=== PATIENT | male | born 1945 | race Caucasian/White ===

== ENCOUNTER 2016-11-23 01:30 | Emergency (ER) | payer MEDICARE ==
[~2016-11-23] VITALS: Ht 180.3 cm; Wt 104.5 kg
[~2016-11-23 01:30] MED LIST: ALDACTONE 100M100 MG PO; ALDACTONE50 MG PO; AMOXICILLIN 50500 MG PO; ATARAX50 MG PO; B-1100 MG PO; BIAXIN 500MG T500 MG PO; CELEXA 20MG20 MG/TAB PO; CORGARD20 MG PO; LASIX 40MG TABL40 MG PO; LEXAPRO 10MG10 MG PO; LIBRIUM 5MG5 MG/CAP PO; MULTIPLE VITAMI1 CAP PO; NO HOME MEDICATIONS; PRILOSEC 20MG20 MG PO; PROTONIX 40MG T40 MG PO; TYLENOL 500MG500 MG PO
[2016-11-23 01:36] VITALS: TEMP 96.8
[2016-11-23 01:51] LABS: BASO # 0.1 (0.0-0.2); BASO % 0.8 % (0.0-2.0); EOS % 0.5 % (0-4.0); GRAN # 4.4 (1.4-6.5); GRAN % 66.5 % (42.2-75.2); HEMATOCRIT 41.4 % (42.0-52.0); HEMOGLOBIN 14.6 g/dl (13.5-18.0); LYMPH # 1.4 (1.2-3.4); LYMPH % 20.7 % (20.0-51.0); MEAN CELL VOLUME 97 fl (80.0-100.0); MEAN CORPUSCULAR HEMOGLOBIN 34 pg (27.0-31.0); MEAN CORPUSCULAR HGB CONC 35 g/dl (33.0-37.0); MONO # 0.7 (0.1-0.6); MONO % 11.2 % (1.7-9.3); PLATELET COUNT 93 K/mm3 (130-400); RED BLOOD COUNT 4.25 M/mm3 (4.20-5.60); WHITE BLOOD COUNT 6.6 K/mm3 (4.8-10.8)
[2016-11-23 01:56] LABS: INR 1.1 (0.8-3.0); PROTHROMBIN TIME 11.8 SECONDS (9.7-12.8)
[2016-11-23 01:58] LABS: ADJUSTED CALCIUM 9.2 mg/dL (8.4-10.2); ALANINE AMINOTRANSFERASE 89 U/L (21-72); ALBUMIN 4.5 gm/dL (3.5-5.0); ALKALINE PHOSPHATASE 116 U/L (50-136); ANION GAP 16 mmol/L (7-16); BLOOD UREA NITROGEN 5 mg/dL (9-20); CALCIUM 9.6 mg/dL (8.4-10.2); CARBON DIOXIDE 16 mmol/L (22-30); CHLORIDE 104 mmol/L (98-107); CREATININE, serum 0.72 mg/dL (0.66-1.25); GLUCOSE 108 mg/dL (74-106); LIPASE 96 U/L (23-300); SODIUM 136 mmol/L (137-145); TOTAL PROTEIN 8.3 gm/dL (6.4-8.2)
[2016-11-23 02:09] LABS: TROPONIN-I < 0.012 ng/mL (0.000-0.034)
[2016-11-23 02:22] LABS: PH 6 (5-8); SQUAMOUS EPITHELIAL None Seen /hpf; URINE APPEARANCE Clear; URINE BACTERIA None Seen /hpf; URINE BILIRUBIN Negative (NEGATIVE); URINE BLOOD Negative (NEGATIVE); URINE COLOR Yellow; URINE GLUCOSE Negative (NEGATIVE); URINE KETONE Trace (NEGATIVE); URINE RBC 0-2 /hpf; URINE UROBILINOGEN Negative (NEGATIVE); URINE WBC 0-2 /hpf
[2016-11-23 02:34] LABS: AMYLASE 71 U/L (30-110)
[2016-11-23 03:32] VITALS: BP 174/88; PULSE 80
[2016-11-23] MEDS ORDERED: PEPCID 20MG TAB20 MG PO (03:41)
== END 2016-11-23 03:45 | disposition home or self-care (01) ==
LOC: COL.ER 01:30
PROVIDERS: Emergency Medicine
DX: K29.70 Gastritis, unspecified, without bleeding (principal); K76.6 Portal hypertension; K76.0 Fatty (change of) liver, not elsewhere classified; K21.9 Gastro-esophageal reflux disease without esophagitis; B19.9 Unspecified viral hepatitis without hepatic coma; Z87.11 Personal history of peptic ulcer disease; Z98.890 Other specified postprocedural states; Z87.19 Personal history of other diseases of the digestive system
CPT/HCPCS: G0463; J2550; J2765; J3010; J7030; Q9967

== ENCOUNTER 2020-03-24 10:38 | Inpatient (IN) | payer MEDICARE ==
[~2020-03-24] VITALS: Ht 180.3 cm; Wt 89.6 kg
[~2020-03-24 10:38] MED LIST changes: +PEPCID 20MG TAB20 MG PO
[2020-03-24 11:29] LABS: BASO # 0.1 (0.0-0.2); BASO % 0.6 % (0.0-2.0); GRAN # 6.4 (1.4-6.5); GRAN % 81.9 % (42.2-75.2); HEMATOCRIT 31.5 % (42.0-52.0); LYMPH # 0.5 (1.2-3.4); LYMPH % 6.3 % (20.0-51.0); MEAN CELL VOLUME 89 fl (80.0-100.0); MEAN CORPUSCULAR HEMOGLOBIN 28 pg (27.0-31.0); MEAN CORPUSCULAR HGB CONC 32 g/dl (33.0-37.0); MEAN PLATELET VOLUME 10.5 fl (7.4-10.4); MONO # 0.8 (0.1-0.6); MONO % 10.7 % (1.7-9.3); PLATELET COUNT 90 K/mm3 (130-400); RED BLOOD COUNT 3.55 M/mm3 (4.20-5.60); REDCELL DISTRIBUTION WIDTH-CV 16.9 % (11.5-14.5)
[2020-03-24 12:04] LABS: ALBUMIN 4.7 gm/dL (3.5-5.0); BILIRUBIN,TOTAL 0.7 mg/dL (0.0-1.0); CALCIUM 9.1 mg/dL (8.4-10.2); CREATININE, serum 0.82 (0.66-1.25); POTASSIUM 3.9 mmol/L (3.4-5.0)
[2020-03-24 14:37] LABS: COLLECTION METHOD CLEAN CATCH
[2020-03-24 15:08] LABS: MUCOUS Present /lpf; PH 6 (5-8); SQUAMOUS EPITHELIAL 0-2 /hpf; URINE APPEARANCE Clear; URINE BACTERIA None Seen /hpf; URINE BILIRUBIN Negative (NEGATIVE); URINE BLOOD 1+ (NEGATIVE); URINE COLOR Yellow; URINE GLUCOSE Negative (NEGATIVE); URINE KETONE 1+ (NEGATIVE); URINE LEUKOCYTE ESTERASE Negative (NEGATIVE); URINE NITRATE Negative (NEGATIVE); URINE PROTEIN(semi-quant) 1+ (NEGATIVE); URINE RBC 0-2 /hpf; URINE UROBILINOGEN Negative (NEGATIVE); URINE WBC 0-2 /hpf
[2020-03-24 18:00] VITALS: BP 159/72; PULSE 85; TEMP 98.3
--- NOTE | 2020-03-24 18:14 | NUR ---
PATIENT ARRIVED TO ROOM 348 VIA CART FROM ED. PATIENT SETTELED INTO ROOM. CALL LIGHT WITHIN REACH.
[2020-03-24 18:39] VITALS: BP 159/72; PULSE 85; TEMP 98.3
--- NOTE | 2020-03-24 18:49 | NUR ---
PATIENT DETOX PROTOCL ASSESSMENT COMPLETED. PATIENT MEDICATED PER PROTOCOL. BEDSIDE SHIFT REPORT GIVEN TO ANTHONY CARLOS.
[2020-03-24 19:15] LABS: HEMATOCRIT 31.5 % (42.0-52.0); HEMOGLOBIN 9.9 g/dl (13.5-18.0)
[2020-03-24 20:00] VITALS: BP 113/68; PULSE 79; TEMP 98.4
--- NOTE | 2020-03-24 20:00 | NUR ---
Pt. laying in bed at this time. Pt. is A&Ox3, assessment complete. IVs to rt. and lt. hands patent, fluids running per orders. Pt. denies pain or other needs at this time. Call light within reach.
[2020-03-24 22:08] VITALS: BP 147/66; PULSE 87; TEMP 98.1
[2020-03-24 23:56] LABS: INR 1.1 (0.8-3.0)
[2020-03-24 23:59] LABS: PARTIAL THROMBOPLASTIN TIME 27.1 SECONDS (26.0-37.0)
[2020-03-25] VITALS (13 sets, daily range): BP systolic 123–164; BP diastolic 57–107; PULSE 65–98; TEMP 97.2–99.1
[2020-03-25 05:57] LABS: BASO % 0.4 % (0.0-2.0); EOS % 0.2 % (0-4.0); GRAN # 3.2 (1.4-6.5); GRAN % 67.6 % (42.2-75.2); LYMPH # 0.9 (1.2-3.4); LYMPH % 19.3 % (20.0-51.0); MEAN CELL VOLUME 91 fl (80.0-100.0); MEAN CORPUSCULAR HGB CONC 31 g/dl (33.0-37.0); MEAN PLATELET VOLUME 10.2 fl (7.4-10.4); MONO # 0.6 (0.1-0.6); MONO % 12.1 % (1.7-9.3); PLATELET COUNT 66 K/mm3 (130-400); RED BLOOD COUNT 2.98 M/mm3 (4.20-5.60)
[2020-03-25 06:05] LABS: HEMATOCRIT 27.1 % (42.0-52.0); HEMOGLOBIN 8.5 g/dl (13.5-18.0); MEAN CORPUSCULAR HEMOGLOBIN 29 pg (27.0-31.0)
[2020-03-25 06:07] LABS: CALCIUM 8.4 mg/dL (8.4-10.2); CREATININE, serum 0.85 (0.66-1.25)
--- NOTE | 2020-03-25 13:49 | NUR ---
Patient alert and oriented, answers questions appropriately. See assessment. Abdomen soft, non tender, non distended. Bowel sounds active x4 quads. +Flatus. Nausea. C/o pain 2/10 diffuse abdominal pain. No other c/o at this time.
--- NOTE | 2020-03-25 13:51 | NUR ---
Plan to return home with spouse Jose . SW met with patient about dc plan. Patien reports that his PCP is Dr. Shiv Solorio and surery is postpone and is not sure of the additional needs that he may have. Patient reports that he does not have any dme. Patient shares that he use [facility] on [address], denies having a POA. No opposed to [facility], if needed. Will continue to follow.
[2020-03-25 20:29] LABS: HEMATOCRIT 29.8 % (42.0-52.0); HEMOGLOBIN 9.1 g/dl (13.5-18.0)
[2020-03-26] VITALS (214 sets, daily range): BP systolic 110–175; BP diastolic 63–97; PULSE 66–108; TEMP 96.9–99.4; O2SAT 69–100
[2020-03-26 06:31] LABS: MEAN CELL VOLUME 91 fl (80.0-100.0); MEAN CORPUSCULAR HGB CONC 32 g/dl (33.0-37.0); PLATELET COUNT 75 K/mm3 (130-400); RED BLOOD COUNT 3.16 M/mm3 (4.20-5.60); REDCELL DISTRIBUTION WIDTH-CV 16.6 % (11.5-14.5)
[2020-03-26 06:33] LABS: HEMATOCRIT 28.6 % (42.0-52.0); MEAN CORPUSCULAR HEMOGLOBIN 28 pg (27.0-31.0)
[2020-03-26 06:41] LABS: CALCIUM 8.5 mg/dL (8.4-10.2); CREATININE, serum 0.84 (0.66-1.25); MAGNESIUM 1.7 mg/dL (1.6-2.3)
[2020-03-26 06:44] LABS: ANISOCYTOSIS 1+; BAND 4 % (0-10); EOSINOPHIL 1 % (0-4); LYMPHOCYTE 9 % (20.0-51.0); NEUTROPHILS 78 % (42.0-75.2); PLATELET ESTIMATE DECREASED (NORMAL)
--- NOTE | 2020-03-26 09:45 | NUR ---
Patient alert, confused to place. Difficult to redirect. See assessment. Abdomen soft, non tender, non distended. +Flatus. No bowel movement today. Repeatedly inquires when he will have EGD. No other c/o at this time.
--- NOTE | 2020-03-26 10:07 | NUR ---
To EGD at this time.
--- NOTE | 2020-03-26 11:52 | NUR ---
Patient returned from EGD at 1105, has had increased agitation since returning. States he did not consent for the EGD and it was done against his will. Requests to leave hospital. Refuses to leave blood pressure cuff on.
--- NOTE | 2020-03-26 12:23 | NUR ---
Patient agitated, upon entering room, patient had SCD motor and was attempting to "break the window so I can leave". Redirected back to bed.
[2020-03-26 14:10] LABS: FOLATE (FOLIC ACID) 16.8 ng/mL (7.0-31.4)
--- NOTE | 2020-03-26 15:15 | NUR ---
Patient continues with agitation. Unable to redirect. Constantly hollering out, throwing items off table/bed.
--- NOTE | 2020-03-26 16:00 | NUR ---
Patient continues with agitation, inability to redirect. Repeatedly scores 18-19 on CIWA. Ativan 2mg given approx q2 hours throughout shift based on CIWA scores. Amber, Hospitalist BRIAN notified x2 of patients increased agitation. Has required assist at bedside of 1-2 staff members throughout the day. Unsteady with attempts at ambulation and attempts to find hospital exit when walking in the halls. Becoming increasingly combative.
--- NOTE | 2020-03-26 17:00 | NUR ---
Precedex drip started by supervisor hospitality house and another RN.
--- NOTE | 2020-03-26 17:20 | NUR ---
Called Jonelle CRUZ from surgical floor for report. Pt in ICU room 5 with oracle data warehouse developer. Pt very agitated and restless. Pt attempting to pull out Iv's, climbing out of bed, and pull things off. Pt also attempting to hit staff members. Will titrate precedex as able.
--- NOTE | 2020-03-26 18:10 | NUR ---
PT CONTINUES TO BE VERY AGITATED AND RESTLESS. UNABLE TO PLACE TELE OR COMPLETE VITALS. PT UP AND OUT OF BED MULTIPLE TIMES.
--- NOTE | 2020-03-26 18:14 | NUR ---
FINALLY ABLE TO PLACE TELE AND SHOWING SR ON MONITOR. BP FINALLY TAKEN. WILL ATTEMPT TO KEEP PT CALM AND IN BED.
[2020-03-26 18:34] LABS: HEMATOCRIT 28.7 % (42.0-52.0); HEMOGLOBIN 8.9 g/dl (13.5-18.0)
--- NOTE | 2020-03-26 19:00 | NUR ---
BEDSIDE WITH NIGHT RN MAC. ABOUT TO INTUBATE. VERBAL REPORT GIVEN.
--- NOTE | 2020-03-26 19:02 | NUR ---
PT CONTINUING TO BE AGGRESIVE AND COMBATIVE. JEANETTE AMBROSE CALLED AND CAME TO B[place]ISDE. ON FLOOR. PLAN TO INTUBATE AND SEDATE PT. RT, EXHIBIT PREPARATOR, AND COMMERCIAL AIRPLANE PILOT AWARE.
--- NOTE | 2020-03-26 19:10 | NUR ---
NURSES REPORT GIVEN, DR HERNÁNDEZ, RT, PRESENT IN ROOM, 1912 PROPOFOL 50 MCQ ADMINISTERED IV RIGHT FOREARM, 1913 PROPOFOL 20 MCQ ADMINISTERED IV, 1913 PATIENT IS ASLEEP WITH MOVEMENT 1914 SUCCSACHOLINE 60 MG ADMINISTERED IV, 1915 ET TUBE PLACED 25 AT TEETH, STEAM IN TUBE,LUNG SOUNDS PRESENT BILATERIL, CHEST RISE AND FALL NOTED,ECO2 MONITOR FROM PURPLE TO GOLD, NO AIR NOISE OVER ABDOMIN, PROPOFOL IV DRIP INITIATED 20 MCQ/KG/MIN 12,5 CC/HR 1916 RESTRAINTS ON UPPER EXTREMITIES APPLIED, 1917 VENTILATOR APPLIED WITH SETTINGS AC, TV 450,FIO2 60, PEEP 5 RATE 22. PATIENT'S PULSE TACHCARDIC, ELEVATED B/P,PROPOFOL INCREASE TO 50 MCQ\KG/MIN PER DR HERNÁNDEZ DIRECT ORDER, 1918 VECURRONIUM 10 MG IVP 1920 VERSED 2 MG IV PUSH ADMINISTERED, PROPOFOL [address] HERNÁNDEZ, 1927, VITALS SETTLING, PROPOFOL DRIP DECREASED TO 35 MCG/KG/MIN, [address] CENTRAL LINE LEFT UPPER CHEST, 1947 CENTRAL LINE PLACED RIGHT EJ FLUSHED, CAPS CHANGED, 1948 PROPFOL DRIP INCREASED TO 40 MCQ/KG/MIN 1958 STILL TO MUCH MOVEMENT PROPOFOL DRIP INCREASED TO 45 MCQ/KG/MIN, SB/P WENT FROM 200S TO 160S HR DOWN TO 80S, 2008 OG 14 FR APPLIED 68 AT LIPS GASTRIC CONTENT SUCTIONED, 2012 PORTABLE CHEST XRAY OBTAINED, 2013 16 FR KESSLER APPLIED, IS PROTOCOL WAY OF CLEANLINESS, AND SUPPORT, 200 CC URINE RESIDUAL RECORDED 2021 FENTANYL 25 MCG/ HR IV DRIP BEGINS, 2103 DR HERNÁNDEZ GIVES PERMISSION TO USE CENTRAL LINE
[2020-03-26 22:35] LABS: ARTERIAL BLD GAS O2 SATURATION 92.7 % (92-100); ARTERIAL BLD GAS TCO2 CT 22.3; ARTERIAL BLOOD GAS BASE EXCESS -1.6 (-2-2); ARTERIAL BLOOD GAS HCO3 21.4 meq/L (22-26); ARTERIAL BLOOD GAS PCO2 29.4 mmHg (35-45); ARTERIAL BLOOD GAS PO2 65.8 mmHg (80-100); ARTERIAL BLOOD GAS pH 7.48 (7.35-7.45)
[2020-03-27] VITALS (1006 sets, daily range): BP systolic 108–177; BP diastolic 64–77; PULSE 53–77; TEMP 97.8–99; O2SAT 93–100
[2020-03-27 05:20] LABS: BASO % 0.4 % (0.0-2.0); EOS % 0.4 % (0-4.0); GRAN # 4.1 (1.4-6.5); GRAN % 75.5 % (42.2-75.2); LYMPH # 0.7 (1.2-3.4); LYMPH % 13.4 % (20.0-51.0); MEAN CELL VOLUME 91 fl (80.0-100.0); MEAN CORPUSCULAR HGB CONC 31 g/dl (33.0-37.0); MEAN PLATELET VOLUME 10.6 fl (7.4-10.4); MONO # 0.5 (0.1-0.6); MONO % 9.7 % (1.7-9.3); RED BLOOD COUNT 3.22 M/mm3 (4.20-5.60); REDCELL DISTRIBUTION WIDTH-CV 17.1 % (11.5-14.5)
[2020-03-27 05:22] LABS: HEMATOCRIT 29.3 % (42.0-52.0); HEMOGLOBIN 9.1 g/dl (13.5-18.0); MEAN CORPUSCULAR HEMOGLOBIN 28 pg (27.0-31.0); PLATELET COUNT 81 K/mm3 (130-400)
[2020-03-27 05:29] LABS: ALBUMIN 3.8 gm/dL (3.5-5.0); CALCIUM 8.2 mg/dL (8.4-10.2); CREATININE, serum 0.93 (0.66-1.25); MAGNESIUM 1.7 mg/dL (1.6-2.3); PHOSPHOROUS 4.3 mg/dL (2.5-4.5); POTASSIUM 3.2 mmol/L (3.4-5.0); TOTAL PROTEIN 6.8 gm/dL (6.4-8.2)
--- NOTE | 2020-03-27 05:29 | NUR ---
PATIENT NOT ON VACATION CAUSE OF JUST BEING INTUBATED LESS THAN 12 HOURS AGO
[2020-03-27 05:44] LABS: ARTERIAL BLD GAS O2 SATURATION 98.5 % (92-100); ARTERIAL BLD GAS TCO2 CT 25.8; ARTERIAL BLOOD GAS BASE EXCESS 0.3 (-2-2); ARTERIAL BLOOD GAS HCO3 24.6 meq/L (22-26); ARTERIAL BLOOD GAS PCO2 38.2 mmHg (35-45); ARTERIAL BLOOD GAS PO2 114.2 mmHg (80-100); ARTERIAL BLOOD GAS pH 7.43 (7.35-7.45)
--- NOTE | 2020-03-27 07:05 | NUR ---
RECEIVED REPORT FROM ANTHONY WATTS. PT RESTING EASILY ON CURRENT VENT SETTINGS: AC, TV 450, PEEP 5, RR 22, FIO2 60%. OGT AT 70CM AT LIPS TO LIS. FC PATENT AND DRAINING TO GRAVITY. COUNTRY SALES MANAGER IN PLACE. VSS. SEE GTT FLOWSHEET.
--- NOTE | 2020-03-27 07:24 | NUR ---
PT ON DOCUMENTED SETTINGS GILBERT WELL. UNABLE TO DO A WEANING TRIAL UNTIL PATIENT HAS BEEN INTUBATED FOR MORE THAN 24 HOURS.
--- NOTE | 2020-03-27 08:24 | NUR ---
DR HERNÁNDEZ NOTIFIED COVID TEST NEGATIVE, TAKE OFF ISOLATION PRECAUTIONS.
--- NOTE | 2020-03-27 11:54 | NUR ---
DR MERRITT STOPS BY AND STATES THAT THE ECHO SHOWS SEVERE STENOSIS AND WILL BE BACK BY LATER TO SEE PT.
--- NOTE | 2020-03-27 14:07 | NUR ---
TF INITIATED AT 15ML/HR PER ORDERS.
--- NOTE | 2020-03-27 17:29 | NUR ---
PT AROUSES TO PAINFUL STIMULI AND TRIES TO CLIMB OUT OF BED AD FIGHTS THE VENT. PT DOES NOT FOLLOW ANY SIMPLE DIRECTIONS. ONLY WAY TO HELP PT CALM DOWN IS BY DECREASING STIMULI AND THEN THE SEDATION MEDICATION TAKES EFFECT TO HELP HIM SETTLE. VSS.
--- NOTE | 2020-03-27 20:00 | NUR ---
STATED HELLO TO PATIENT, HE TURNS HEAD IN MY DIRECTION AND OPEN EYES, SOON THEN BACK TO SLEEP FACIAL FEATRUES RELAXED, LIMBS RELAXED NO STIFFNESS
[2020-03-28] VITALS (846 sets, daily range): BP systolic 89–139; BP diastolic 55–86; PULSE 67–126; TEMP 98.1–99.8; O2SAT 84–100
[2020-03-28 04:23] LABS: ARTERIAL BLD GAS O2 SATURATION 94.6 % (92-100); ARTERIAL BLD GAS TCO2 CT 25.5; ARTERIAL BLOOD GAS BASE EXCESS -0.2 (-2-2); ARTERIAL BLOOD GAS HCO3 24.3 meq/L (22-26); ARTERIAL BLOOD GAS PO2 74.7 mmHg (80-100); ARTERIAL BLOOD GAS pH 7.41 (7.35-7.45)
[2020-03-28 04:55] LABS: CALCIUM 7.6 mg/dL (8.4-10.2); CREATININE, serum 0.91 (0.66-1.25); MAGNESIUM 2.3 mg/dL (1.6-2.3); PHOSPHOROUS 3.2 mg/dL (2.5-4.5); POTASSIUM 3.6 mmol/L (3.4-5.0)
--- NOTE | 2020-03-28 07:05 | NUR ---
RECEIVED REPORT FROM ANTHONY WATTS. PT RESTING EASILY ON CURRENT VENT SETTINGS: AC, TV 450, PEEP 5, RR 20, FIO2 45%. FC PATENT AND DRAINING TO GRAVITY. OGT AT 67CM WITH TF INFUSING AT 30ML/HR. VSS. RN ELIGIBILITY IN PLACE. SEE GTT FLOWSHEET.
--- NOTE | 2020-03-28 07:35 | NUR ---
PT TRYING TO CLIMB OOB AND THRASHING IN BED WITH PULLING AGAINST RESTRAINTS. PT'S HR IN THE 120s. PT SWEATING AND HAVING A HARD TIME SETTLING. SEE MAR. AFTER MEDICATION PT ABLE TO CALM WITH NURSE EXPLAINING WHERE HE IS AND WHAT HAPPENED. PT EVENTUALLY DRIFTS BACK TO SLEEP.
--- NOTE | 2020-03-28 08:11 | NUR ---
PATIENT UNABLE TO RESPOND ENOUGH FOR WEANING TRIAL. TRY AGAIN WHEN MORE RESPONSIVE.
--- NOTE | 2020-03-28 08:17 | NUR ---
DR HERNÁNDEZ AT BEDSIDE FOR ASSESSMENT, DISCUSSED PT STILL BECOMING AGITATED. PER DR HERNÁNDEZ POC TO POSSIBLY TRY TO EXTUBATE FRIDAY.
--- NOTE | 2020-03-28 11:53 | NUR ---
TF INCREASED TO 40ML/HR WHICH IS GOAL PER ORDERS. RESIDUAL 10 ML.
--- NOTE | 2020-03-28 18:11 | NUR ---
PT VERY AGITATED AND MULTIPLE INCREASES ON GTTs, SEE FLOWSHEET. SEE MAR FOR MEDICATION GIVEN. PT BANGING AGAINST SIDE RAILS AND CONSTANTLY PULLING AT GOWN. PT UNABLE TO CALM DOWN WITH NURSE'S ATTEMPTS TO REORIENT PERSON. PT VERY AGITATED AT THIS TIME. WILL MONITOR CLOSELY UNTIL PT IS ABLE TO CALM DOWN.
--- NOTE | 2020-03-28 19:20 | NUR ---
Received report from ANTHONY Perry.
--- NOTE | 2020-03-28 21:30 | NUR ---
This RN at bedside when patient became extremely restless and agitated. Patient attempting to sit up in bed and is pulling at restraints. Sedation titrated according to orders with little to no effect. Patient's heart rate and rhythm then elevated and changed to afib RVR up to the 170s. Dr. Adams notified. Received orders for Amio bolus of 150mg and to initiate the drip at 1 mg/min for 6 hours, then 0.5 mg/min for 18 hours. Will continue to monitor.
[2020-03-29] VITALS (647 sets, daily range): BP systolic 69–117; BP diastolic 48–88; PULSE 63–80; TEMP 97.8–99.4; O2SAT 90–100
--- NOTE | 2020-03-29 00:15 | NUR ---
This RN noted poor urine output; only 10mL in urometer since shift change. Patient's heredia catheter flushed with little return. Patient bladder scanned, showing approximately 500mL. Catheter advanced slightly; immediately, patient began to profusely urinate around heredia catheter, enough to saturate bed linens. Approximately 11mL of water removed from heredia balloon, and heredia is removed without difficulty. Patient voids an additional 100-200mL of urine. No further output noted at this time, 0322. Will place a larger Swedish heredia and continue to monitor.
--- NOTE | 2020-03-29 01:55 | NUR ---
Patient primarily in rate controlled afib since approximately 2200 after receiving Amiodarone bolus. Notified by oil processing technician, Tom, at 0050, patient in sinus rhythm with HR in 70s. Patient currently SR in high 50s, with soft BPs, as low as 70s/40s at times. Notified HALIE Dejesus, who ordered that amio drip be held at this time. Will continue to monitor.
--- NOTE | 2020-03-29 03:45 | NUR ---
Notified BHARATH of patient's low BPs, ranging 70-80s/40-50s despite amio drip on hold and reducing sedation significantly. No orders obtained at this time. Will continue to monitor.
--- NOTE | 2020-03-29 04:33 | NUR ---
Followed up with BHARATH regarding patient's low BPs. Received orders to bolus 1L NS now.
[2020-03-29 05:23] LABS: BASO % 0.3 % (0.0-2.0); EOS # 0.2 (0.0-0.7); EOS % 2.4 % (0-4.0); GRAN # 4.1 (1.4-6.5); GRAN % 67.2 % (42.2-75.2); LYMPH # 0.9 (1.2-3.4); LYMPH % 14.2 % (20.0-51.0); MEAN CELL VOLUME 93 fl (80.0-100.0); MEAN CORPUSCULAR HGB CONC 30 g/dl (33.0-37.0); MEAN PLATELET VOLUME 10.8 fl (7.4-10.4); MONO # 0.9 (0.1-0.6); MONO % 15.2 % (1.7-9.3); PLATELET COUNT 95 K/mm3 (130-400); RED BLOOD COUNT 2.89 M/mm3 (4.20-5.60); REDCELL DISTRIBUTION WIDTH-CV 17.5 % (11.5-14.5)
[2020-03-29 05:24] LABS: HEMATOCRIT 26.8 % (42.0-52.0); HEMOGLOBIN 8.1 g/dl (13.5-18.0); MEAN CORPUSCULAR HEMOGLOBIN 28 pg (27.0-31.0)
[2020-03-29 05:24] LABS: ARTERIAL BLD GAS O2 SATURATION 95.7 % (92-100); ARTERIAL BLD GAS TCO2 CT 23.7; ARTERIAL BLOOD GAS BASE EXCESS -1.8 (-2-2); ARTERIAL BLOOD GAS HCO3 22.6 meq/L (22-26); ARTERIAL BLOOD GAS PCO2 36.8 mmHg (35-45); ARTERIAL BLOOD GAS PO2 79.3 mmHg (80-100); ARTERIAL BLOOD GAS pH 7.41 (7.35-7.45)
[2020-03-29 05:29] LABS: CALCIUM 7.3 mg/dL (8.4-10.2); CREATININE, serum 0.87 (0.66-1.25); MAGNESIUM 2.5 mg/dL (1.6-2.3); PHOSPHOROUS 2.7 mg/dL (2.5-4.5); POTASSIUM 3.5 mmol/L (3.4-5.0)
--- NOTE | 2020-03-29 07:00 | NUR ---
REPORT RECEIVED FROM RENEE CRUZ. PT HAS PROP RUNNING AT 40MCG AND FENT AT 100MCG. WILL CONTINUE TO MONITOR.
--- NOTE | 2020-03-29 11:00 | NUR ---
SPOKE WITH REGARDING PT'S BP IN THE 80-90'S. ORDERS RECEIVED TO GIVE 1L BOLUS IF BP DOES NOT IMPROVE RECCOMMENDS STARTING LEVO AND SEPSIS PROTOCOL.
--- NOTE | 2020-03-29 14:26 | NUR ---
SPOKE WITH REGARDING PTS BP'S IN THE 80-90S. WILL START LEVO IF MAP DROPS BELOW 65 PER 'S RECOMMENDATIONS.
--- NOTE | 2020-03-29 17:00 | NUR ---
PT'S SEDATION DECREASED. PT MOVING ALL EXTREMITIES BUT WILL NOT FOLLOW COMMAND. PT STARTING TO GET RESTLESS AND TACHYPNIC. SEDATION INCREASED.
--- NOTE | 2020-03-29 19:00 | NUR ---
Received report from ANTHONY Carrero.
[2020-03-30] VITALS (676 sets, daily range): BP systolic 100–139; BP diastolic 62–82; PULSE 61–103; TEMP 97.7–100.1; O2SAT 90–100
--- NOTE | 2020-03-30 00:06 | NUR ---
Notified HALIE Nieves, that patient's right arm appears red and swollen, more so than the left. Received orders for ultrasound in the AM. Will continue to monitor.
[2020-03-30 05:13] LABS: BASO % 0.3 % (0.0-2.0); EOS # 0.2 (0.0-0.7); EOS % 2.8 % (0-4.0); GRAN % 68.3 % (42.2-75.2); LYMPH # 0.7 (1.2-3.4); LYMPH % 11.7 % (20.0-51.0); MEAN CELL VOLUME 93 fl (80.0-100.0); MEAN CORPUSCULAR HGB CONC 30 g/dl (33.0-37.0); MEAN PLATELET VOLUME 10.5 fl (7.4-10.4); MONO # 0.9 (0.1-0.6); MONO % 16.2 % (1.7-9.3); PLATELET COUNT 105 K/mm3 (130-400); REDCELL DISTRIBUTION WIDTH-CV 17.4 % (11.5-14.5)
[2020-03-30 05:14] LABS: HEMOGLOBIN 7.9 g/dl (13.5-18.0); MEAN CORPUSCULAR HEMOGLOBIN 28 pg (27.0-31.0)
[2020-03-30 05:22] LABS: CALCIUM 7.5 mg/dL (8.4-10.2); CREATININE, serum 0.83 (0.66-1.25)
[2020-03-30 05:54] LABS: ARTERIAL BLD GAS TCO2 CT 21.5; ARTERIAL BLOOD GAS HCO3 20.5 meq/L (22-26); ARTERIAL BLOOD GAS PCO2 34.6 mmHg (35-45); ARTERIAL BLOOD GAS pH 7.39 (7.35-7.45)
--- NOTE | 2020-03-30 07:10 | NUR ---
RECEIVED REPORT FROM ANTHONY DURAN. PT RESTING EASILY ON CURRENT VENT SETTINGS: AC, TV 480, PEEP5, FIO2 35%. FC PATENT AND DRAINING TO GRAVITY. OGT AT 69CM AT THE TEETH. TF INFUSIGN AT 40ML/HR. VSS. PILOT PLANT OPERATOR IN PLACE.
--- NOTE | 2020-03-30 07:36 | NUR ---
PT IS NOT ON WEAN TRIAL PATIENT SEDATION IS NOT LOWERED AND PT WILL NOT BE EXTUBATED TODAY. PT IS IN NO DISTRESS NOTED AT THIS TIME.
--- NOTE | 2020-03-30 08:45 | NUR ---
DR HERNÁNDEZ MADE AWARE OF US RESULT OF DVT IN RUE. NEW ORDERS RECEIVED. PHYSICIAN STATES TO KEEP PICC LINE IN PLACE AND CONTINUE TO USE.
--- NOTE | 2020-03-30 10:15 | NUR ---
DR JEFFRIES AT BEDSIDE FOR ASSESSMENT. PHYSICIAN MADE AWARE OF US RESULTS OF DVT AND H&H THIS AM BUT NO SIGNS OF BLEEDING. ORDERS FOR H&H RECHECK THIS AFTERNOON.
--- NOTE | 2020-03-30 13:00 | NUR ---
RECIEVED BEDSIDE REPORT FROM HYUN CRUZ. PT RESTING IN BED. CONTINUES ON VENTILATOR.
[2020-03-30 17:16] LABS: HEMATOCRIT 26.7 % (42.0-52.0); HEMOGLOBIN 8.1 g/dl (13.5-18.0)
[2020-03-31] VITALS (646 sets, daily range): BP systolic 89–136; BP diastolic 52–73; PULSE 59–95; TEMP 98.3–99.8; O2SAT 90–100
[2020-03-31 05:58] LABS: ARTERIAL BLD GAS O2 SATURATION 95.4 % (92-100); ARTERIAL BLD GAS TCO2 CT 22.3; ARTERIAL BLOOD GAS BASE EXCESS -3.1 (-2-2); ARTERIAL BLOOD GAS HCO3 21.3 meq/L (22-26); ARTERIAL BLOOD GAS PCO2 34.7 mmHg (35-45); ARTERIAL BLOOD GAS PO2 76.9 mmHg (80-100); ARTERIAL BLOOD GAS pH 7.41 (7.35-7.45)
[2020-03-31 06:16] LABS: BASO % 0.4 % (0.0-2.0); EOS # 0.2 (0.0-0.7); EOS % 3.6 % (0-4.0); GRAN # 2.9 (1.4-6.5); GRAN % 61.2 % (42.2-75.2); LYMPH # 0.7 (1.2-3.4); LYMPH % 14.4 % (20.0-51.0); MEAN CELL VOLUME 93 fl (80.0-100.0); MEAN CORPUSCULAR HGB CONC 30 g/dl (33.0-37.0); MEAN PLATELET VOLUME 11.2 fl (7.4-10.4); MONO # 0.9 (0.1-0.6); MONO % 19.3 % (1.7-9.3); PLATELET COUNT 125 K/mm3 (130-400); RED BLOOD COUNT 2.65 M/mm3 (4.20-5.60); REDCELL DISTRIBUTION WIDTH-CV 17.5 % (11.5-14.5)
[2020-03-31 06:17] LABS: HEMATOCRIT 24.7 % (42.0-52.0); HEMOGLOBIN 7.4 g/dl (13.5-18.0); MEAN CORPUSCULAR HEMOGLOBIN 28 pg (27.0-31.0)
[2020-03-31 06:25] LABS: CALCIUM 7.6 mg/dL (8.4-10.2); CREATININE, serum 0.84 (0.66-1.25); POTASSIUM 3.8 mmol/L (3.4-5.0)
[2020-03-31 11:25] LABS: INR 1.2 (0.8-3.0)
[2020-03-31 11:28] LABS: PARTIAL THROMBOPLASTIN TIME 33.1 SECONDS (26.0-37.0)
[2020-04-01] VITALS (547 sets, daily range): BP systolic 94–115; BP diastolic 53–65; PULSE 57–70; TEMP 97.9–99.5; O2SAT 75–100
--- NOTE | 2020-04-01 05:00 | NUR ---
Sedation vacation not completed due to instructions of sedation to come off at 0900 for weaning trial. Tube feeds stopped per order at this time as well. When sedation was decreased at an earlier time this shift pts significant increase in VSS, breathing and restlessness was a result.
[2020-04-01 05:33] LABS: ARTERIAL BLD GAS O2 SATURATION 90.9 % (92-100); ARTERIAL BLD GAS TCO2 CT 21.3; ARTERIAL BLOOD GAS BASE EXCESS -3.8 (-2-2); ARTERIAL BLOOD GAS HCO3 20.3 meq/L (22-26); ARTERIAL BLOOD GAS PCO2 33.4 mmHg (35-45)
[2020-04-01 05:38] LABS: BASO % 0.3 % (0.0-2.0); EOS # 0.1 (0.0-0.7); EOS % 2.2 % (0-4.0); GRAN # 3.8 (1.4-6.5); GRAN % 64.7 % (42.2-75.2); LYMPH # 0.8 (1.2-3.4); LYMPH % 14.2 % (20.0-51.0); MEAN CELL VOLUME 92 fl (80.0-100.0); MEAN CORPUSCULAR HGB CONC 30 g/dl (33.0-37.0); MONO % 17.6 % (1.7-9.3); PLATELET COUNT 147 K/mm3 (130-400); RED BLOOD COUNT 2.87 M/mm3 (4.20-5.60); REDCELL DISTRIBUTION WIDTH-CV 17.3 % (11.5-14.5)
[2020-04-01 05:42] LABS: CALCIUM 8.2 mg/dL (8.4-10.2); CREATININE, serum 0.74 (0.66-1.25); MAGNESIUM 2.3 mg/dL (1.6-2.3); PHOSPHOROUS 2.9 mg/dL (2.5-4.5); POTASSIUM 3.9 mmol/L (3.4-5.0)
[2020-04-01 05:45] LABS: HEMATOCRIT 26.4 % (42.0-52.0); MEAN CORPUSCULAR HEMOGLOBIN 28 pg (27.0-31.0)
--- NOTE | 2020-04-01 06:40 | NUR ---
PT WILL BE ON A WEAN TRIAL ONCE DR HERNÁNDEZ IS IN HOUSE TO BE AVALIABLE TO WATCH PATIENTS FOR THEIR TRALS. PT IS ON DOCUMENTED SETTINGS GILBERT WELL WITH NO DISTRESS NOTED.
--- NOTE | 2020-04-01 07:05 | NUR ---
Bedside report provided to Alise CRUZ. Pt resting in bed at intubated and sedated. IV pumps, ETT/ OG tube assessed as well as vent settings.
--- NOTE | 2020-04-01 07:30 | NUR ---
REPORT RECEIVED FROM MICKIE CRUZ. PT HAS HEPARIN RUNNING AT 1700UNITS/HR NEXT XA AT 1000. PT ALSO HAS PROPOFOL RUNNING AT 31.4 ML/HR AND FENT AT 6.3ML/HR. WILL CONTINUE TO MONITOR.
--- NOTE | 2020-04-01 09:20 | NUR ---
SEDATION STOPPED PER . RESTRAINTS CHECKED. PT INSTRUCTED ON SEDATION BEING STOPPED AND POSSIBLE EXTUBATION. WILL CONTINUE TO MONITOR.
--- NOTE | 2020-04-01 10:12 | NUR ---
PT HAD DISCONNECT HIS VENT. PT'S HR IN THE 140'S, BP IN THE 190'S, AND PT VERY RESTLESS. RT CALLED. NOTIFIED AND SEDATION RESTARTED.
--- NOTE | 2020-04-01 10:13 | NUR ---
SEDATION RESTARTED PER
--- NOTE | 2020-04-01 12:30 | NUR ---
TF RESTARTED SINCE UNABLE TO EXTUBATE PT TODAY.
--- NOTE | 2020-04-01 17:00 | NUR ---
Pt had a sedation vacation this am from [id number]. Pt became tachycardic, hypertensive, and attempting to pull on his ET tube. Did not repeat sedation vacation on this shift.
--- NOTE | 2020-04-01 19:05 | NUR ---
Report received from Alise. Pt resting quietly, intubated with sedation medications infusing. IV pumps assessed as well as OG/ ET tube placement.
--- NOTE | 2020-04-01 19:27 | NUR ---
PATIENT ON HOME VENTILATOR. O2 ON 3L FLOWMETER, HME IN PLACE CLEAN AND DRY.
--- NOTE | 2020-04-01 22:30 | NUR ---
Tube feeds increased 15ml per order for a total of 30ml/hr.
[2020-04-02] VITALS (343 sets, daily range): BP systolic 97–163; BP diastolic 52–102; PULSE 60–105; TEMP 98.3–99.5; O2SAT 88–100
[2020-04-02 05:39] LABS: BASO % 0.7 % (0.0-2.0); EOS # 0.1 (0.0-0.7); EOS % 2.1 % (0-4.0); GRAN # 3.8 (1.4-6.5); GRAN % 65.3 % (42.2-75.2); LYMPH # 0.8 (1.2-3.4); LYMPH % 13.9 % (20.0-51.0); MEAN CELL VOLUME 92 fl (80.0-100.0); MEAN CORPUSCULAR HGB CONC 30 g/dl (33.0-37.0); MONO % 16.8 % (1.7-9.3); PLATELET COUNT 156 K/mm3 (130-400); RED BLOOD COUNT 2.86 M/mm3 (4.20-5.60); REDCELL DISTRIBUTION WIDTH-CV 17.5 % (11.5-14.5)
[2020-04-02 05:42] LABS: HEMATOCRIT 26.3 % (42.0-52.0); HEMOGLOBIN 7.9 g/dl (13.5-18.0); MEAN CORPUSCULAR HEMOGLOBIN 28 pg (27.0-31.0)
[2020-04-02 05:50] LABS: CALCIUM 8.1 mg/dL (8.4-10.2); CREATININE, serum 0.79 (0.66-1.25); MAGNESIUM 2.2 mg/dL (1.6-2.3); PHOSPHOROUS 3.4 mg/dL (2.5-4.5); POTASSIUM 3.6 mmol/L (3.4-5.0)
[2020-04-02 06:15] LABS: ARTERIAL BLD GAS O2 SATURATION 93.8 % (92-100); ARTERIAL BLOOD GAS BASE EXCESS -1.3 (-2-2); ARTERIAL BLOOD GAS HCO3 22.9 meq/L (22-26); ARTERIAL BLOOD GAS PCO2 36.4 mmHg (35-45); ARTERIAL BLOOD GAS PO2 71.7 mmHg (80-100); ARTERIAL BLOOD GAS pH 7.42 (7.35-7.45)
--- NOTE | 2020-04-02 07:00 | NUR ---
RECEIVED REPORT FROM ANTHONY CORADO. PT RESTING EASILY ON CURRENT VENT SETTINGS: AC, TV 480, PEEP 5, RR 20, FIO2 30%. FC PATENT AND DRAINING TO GRAVITY. VSS. COOK SEAFOOD IN PLACE. OGT AT 70 LIP WITH TF INFUSING AT 30 ML/HR. ETT 24 AT THE LIP. SEE GTT FLOWSHEET.
--- NOTE | 2020-04-02 07:20 | NUR ---
Report provided to Orlando CRUZ. Pt resting in bed at this time with eyes closed. IV pumps verified, ETT tube and OG positioning as well.
--- NOTE | 2020-04-02 07:38 | NUR ---
PT IS NOT ON WEAN TRIAL ON DOCUMENTED SETTINGS GILBERT WELL WITH NO DISTRESS NOTED AT THIS TIME.
--- NOTE | 2020-04-02 08:50 | NUR ---
TF INCREASED TO 40ML/HR PER ORDERS, RESIDUAL 23 ML.
--- NOTE | 2020-04-02 10:00 | NUR ---
PER DR HERNÁNDEZ, PT STARTED ON WEANING TRIAL AND SEDATION VACATION WITH RT. TF PLACED ON HOLD.
--- NOTE | 2020-04-02 10:58 | NUR ---
DR HERNÁNDEZ AT BEDSIDE FOR ASSESSMENT. PHYSICIAN STATES WOULD LIKE TO TRY PT FOR AWHILE LONGER ON WEANING TRIAL TO SEE HOW HE DOES R/T AGITATION. PT CALM AT THIS TIME. WILL MONITOR CLOSELY. NEW ORDERS RECEIVED.
--- NOTE | 2020-04-02 12:00 | NUR ---
PT VERY AGITATED AND SETTING OFF HIGH PRESSURE ALARMS ON VET. HR 100-155. SBP 150-170s AT THIS TIME. PT DOES FOLLOW SIMPLE COMMANDS BUT DOES NOT STAY FOCUSED FOR LONG. MULTIPLE ATTEMPTS MADE TO HELP PT CALM DOWN. WILL CONTINUE TO MONITOR CLOSELY AND HELP PT RELA TO BREATHE EASIER.
--- NOTE | 2020-04-02 12:23 | NUR ---
DR HERNÁNDEZ NOTIFIED OF PT'S BP 177/112, HR 117 AND RR 30. PHYSICIAN STATES TO RESTART AC MODE AND PUT SEDATION BACK TO WHERE IT WAS PRIOR TO SEDATION VACATION, PROPOFOL 40MG/KG/MIN AND FENT 125MCG/HR. RT TO BEDSIDE TO RESET AC MODE. TF TO RESUME AT 40ML/HR.
--- NOTE | 2020-04-02 19:00 | NUR ---
Report from ANTHONY Perry. Patient resting quitely on ventilator, sedated. See assessment.
--- NOTE | 2020-04-02 20:30 | NUR ---
Patient's calls. Update provided.
[2020-04-03] VITALS (769 sets, daily range): BP systolic 86–130; BP diastolic 9–66; PULSE 56–67; TEMP 97.5–98.8; O2SAT 63–100
[2020-04-03 05:17] LABS: ARTERIAL BLD GAS O2 SATURATION 92.2 % (92-100); ARTERIAL BLD GAS TCO2 CT 26.7; ARTERIAL BLOOD GAS BASE EXCESS 1.3 (-2-2); ARTERIAL BLOOD GAS HCO3 25.5 meq/L (22-26); ARTERIAL BLOOD GAS PO2 64.7 mmHg (80-100); ARTERIAL BLOOD GAS pH 7.43 (7.35-7.45)
[2020-04-03 05:48] LABS: MEAN CELL VOLUME 91 fl (80.0-100.0); MEAN CORPUSCULAR HGB CONC 30 g/dl (33.0-37.0); MEAN PLATELET VOLUME 11.3 fl (7.4-10.4); PLATELET COUNT 173 K/mm3 (130-400); RED BLOOD COUNT 2.88 M/mm3 (4.20-5.60); REDCELL DISTRIBUTION WIDTH-CV 17.3 % (11.5-14.5)
[2020-04-03 05:57] LABS: BILIRUBIN,TOTAL 0.4 mg/dL (0.0-1.0); CALCIUM 8.3 mg/dL (8.4-10.2); CREATININE, serum 0.8 (0.66-1.25); MAGNESIUM 2.3 mg/dL (1.6-2.3); PHOSPHOROUS 3.4 mg/dL (2.5-4.5); POTASSIUM 3.7 mmol/L (3.4-5.0); TOTAL PROTEIN 6.3 gm/dL (6.4-8.2)
[2020-04-03 06:00] LABS: HEMATOCRIT 26.1 % (42.0-52.0); HEMOGLOBIN 7.9 g/dl (13.5-18.0); MEAN CORPUSCULAR HEMOGLOBIN 27 pg (27.0-31.0)
[2020-04-03 06:04] LABS: PRE ALBUMIN 11.1 mg/dL (17.6-36.0)
[2020-04-03 06:32] LABS: ANISOCYTOSIS 1+; BASOPHIL 1 % (0-2); EOSINOPHIL 3 % (0-4); HYPOCHROMIA 3+; LYMPHOCYTE 18 % (20.0-51.0); NEUTROPHILS 75 % (42.0-75.2); PLATELET ESTIMATE NORMAL (NORMAL)
--- NOTE | 2020-04-03 06:45 | NUR ---
Patient with increased respiratory effort; rate increased to 30/minute. Patient appears to be stacking breaths. Increased Propfol gtt to 30 mcg/kg/min. Notable decrease in effort within few minutes of change. Will continue to monitor.
--- NOTE | 2020-04-03 07:00 | NUR ---
Uneventful night. Patient continues to be sedated on ventilator. Arouese to light tactile stimuli. Propofol, Fentanyl & Heparin gtts continue. Report to ANTHONY Perry.
--- NOTE | 2020-04-03 07:00 | NUR ---
RECEIVED REPORT FROM ANTHONY BAUTISTA. PT RESTING EASILY ON CURRENT VENT SETTINGS: TV 480, PEEP 5, FIO2 30%, RR 20. FC PATENT AND DRAINING TO GRAVITY. SFDC TECHNICAL ARCHITECT IN PLACE. OGT AT 70CM AT LIP WITH TF INFUSING AT 40ML/HR. VSS. ETT 24 AT THE LIP. SEE GTT FLOWSHEET.
--- NOTE | 2020-04-03 08:15 | NUR ---
DR HERNÁNDEZ AT BEDSIDE FOR ASSESSMENT. DISCUSSED CXR AND PT BREATHIGN OVER VENT TO SEDATE HIM SOME MORE, SEE GTT FLOWSHEET. NEW ORDERS RECEIVED. RT AWARE OF SPUTUM CULTURE NEEDED.
--- NOTE | 2020-04-03 12:51 | NUR ---
DR MCGEE AT BEDSIDE FOR ASSESSMENT
--- NOTE | 2020-04-03 17:30 | NUR ---
PT TRIES TO OPENS EYES TO VERBAL STIMULI AND COUGHS FREQUENTLY AGAINST VENT SETTING OFF ALARMS.
--- NOTE | 2020-04-03 19:45 | NUR ---
report received from ANTHONY Perry.
--- NOTE | 2020-04-03 20:24 | NUR ---
RECEIVED PT WITH THIS RATE.
[2020-04-04] VITALS (645 sets, daily range): BP systolic 91–149; BP diastolic 50–79; PULSE 52–114; TEMP 97.8–100.2; O2SAT 79–100
[2020-04-04 05:19] LABS: MEAN CELL VOLUME 92 fl (80.0-100.0); MEAN CORPUSCULAR HGB CONC 31 g/dl (33.0-37.0); MEAN PLATELET VOLUME 11.2 fl (7.4-10.4); PLATELET COUNT 181 K/mm3 (130-400); RED BLOOD COUNT 2.84 M/mm3 (4.20-5.60); REDCELL DISTRIBUTION WIDTH-CV 17.3 % (11.5-14.5)
[2020-04-04 05:24] LABS: MEAN CORPUSCULAR HEMOGLOBIN 28 pg (27.0-31.0)
[2020-04-04 05:31] LABS: CALCIUM 8.3 mg/dL (8.4-10.2); CREATININE, serum 0.76 (0.66-1.25); MAGNESIUM 2.3 mg/dL (1.6-2.3); PHOSPHOROUS 3.1 mg/dL (2.5-4.5); POTASSIUM 3.6 mmol/L (3.4-5.0)
[2020-04-04 05:45] LABS: IRON,SERUM 40 ug/dL (35-150)
[2020-04-04 05:54] LABS: TOTAL IRON BINDING CAPACITY 329 ug/dL (261-462)
[2020-04-04 05:59] LABS: ARTERIAL BLD GAS TCO2 CT 28.6; ARTERIAL BLOOD GAS BASE EXCESS 3.1 (-2-2); ARTERIAL BLOOD GAS HCO3 27.4 meq/L (22-26); ARTERIAL BLOOD GAS PCO2 40.7 mmHg (35-45); ARTERIAL BLOOD GAS PO2 67.4 mmHg (80-100); ARTERIAL BLOOD GAS pH 7.45 (7.35-7.45)
[2020-04-04 07:21] LABS: BAND 6 % (0-10); EOSINOPHIL 2 % (0-4); LYMPHOCYTE 8 % (20.0-51.0); METAMYELOCYTE 4 % (0-0); NEUTROPHILS 77 % (42.0-75.2)
[2020-04-04 07:22] LABS: PLATELET ESTIMATE NORMAL (NORMAL)
[2020-04-04 07:23] LABS: ANISOCYTOSIS 1+; HYPOCHROMIA 1+
--- NOTE | 2020-04-04 07:29 | NUR ---
REPORT GIVEN TO ANTHONY RUSSELL.
[2020-04-04 09:58] LABS: ARTERIAL BLD GAS O2 SATURATION 93.7 % (92-100); ARTERIAL BLD GAS TCO2 CT 26.3; ARTERIAL BLOOD GAS BASE EXCESS 1.8 (-2-2); ARTERIAL BLOOD GAS HCO3 25.2 meq/L (22-26); ARTERIAL BLOOD GAS PCO2 34.7 mmHg (35-45); ARTERIAL BLOOD GAS PO2 67.9 mmHg (80-100); ARTERIAL BLOOD GAS pH 7.48 (7.35-7.45)
--- NOTE | 2020-04-04 11:15 | NUR ---
Patients called for an update, RN updated her on POC.
--- NOTE | 2020-04-04 17:07 | NUR ---
Patient has been off sedation since this morning.
--- NOTE | 2020-04-04 19:18 | NUR ---
RECEIVED REPORT FROM ANTHONY RUSSELL.
--- NOTE | 2020-04-04 19:19 | NUR ---
RECEIVED PT WITH THIS RATE.
--- NOTE | 2020-04-04 22:48 | NUR ---
PT OPENS EYES WHILE DOING BED CHANGE/BED BATH BUT DOES NOT FOLLOW COMMANDS.
[2020-04-05] VITALS (691 sets, daily range): BP systolic 93–151; BP diastolic 52–74; PULSE 54–85; TEMP 98.2–100.2; O2SAT 82–100
[2020-04-05 05:37] LABS: BASO # 0.1 (0.0-0.2); BASO % 0.6 % (0.0-2.0); EOS # 0.2 (0.0-0.7); EOS % 2.9 % (0-4.0); GRAN # 5.7 (1.4-6.5); GRAN % 71.6 % (42.2-75.2); LYMPH # 1.1 (1.2-3.4); LYMPH % 13.9 % (20.0-51.0); MEAN CELL VOLUME 92 fl (80.0-100.0); MEAN CORPUSCULAR HGB CONC 30 g/dl (33.0-37.0); MEAN PLATELET VOLUME 11.1 fl (7.4-10.4); MONO # 0.8 (0.1-0.6); MONO % 9.9 % (1.7-9.3); PLATELET COUNT 210 K/mm3 (130-400); RED BLOOD COUNT 2.86 M/mm3 (4.20-5.60); REDCELL DISTRIBUTION WIDTH-CV 17.6 % (11.5-14.5)
[2020-04-05 05:40] LABS: ARTERIAL BLD GAS O2 SATURATION 95.4 % (92-100); ARTERIAL BLD GAS TCO2 CT 25.7; ARTERIAL BLOOD GAS HCO3 24.7 meq/L (22-26); ARTERIAL BLOOD GAS PCO2 33.4 mmHg (35-45); ARTERIAL BLOOD GAS PO2 76.8 mmHg (80-100); ARTERIAL BLOOD GAS pH 7.49 (7.35-7.45)
[2020-04-05 05:44] LABS: CALCIUM 8.3 mg/dL (8.4-10.2); CREATININE, serum 0.82 (0.66-1.25); MAGNESIUM 2.4 mg/dL (1.6-2.3); PHOSPHOROUS 3.4 mg/dL (2.5-4.5); POTASSIUM 3.6 mmol/L (3.4-5.0)
[2020-04-05 05:53] LABS: HEMATOCRIT 26.4 % (42.0-52.0); HEMOGLOBIN 7.8 g/dl (13.5-18.0); MEAN CORPUSCULAR HEMOGLOBIN 27 pg (27.0-31.0)
--- NOTE | 2020-04-05 05:57 | NUR ---
DR HERNÁNDEZ WANTS SEDATION OFF AT 0600 PER HIS NOTES.
--- NOTE | 2020-04-05 05:59 | NUR ---
DR HERNÁNDEZ WANTS SEDATION OFF AT 0600 PER HIS NOTES.
--- NOTE | 2020-04-05 07:04 | NUR ---
REPORT GIVEN TO ANTHONY RUSSELL.
--- NOTE | 2020-04-05 18:10 | NUR ---
PATIENT HAS BEEN OFF SEDATION ALL DAY/
--- NOTE | 2020-04-05 19:09 | NUR ---
report received from ANTHONY Pugh.
--- NOTE | 2020-04-05 21:27 | NUR ---
FENTANYL BAG AND WASTED 75 ML WITH ANTHONY CATES.
--- NOTE | 2020-04-05 21:57 | NUR ---
PT AWAKE, FOLLOWING COMMANDS AND ABLE TO SQUEEZE HANDS. PT KEEPS COUGHING AND BREATHING OVER VENT, RR AT 40'S AND BP AT 140-150S HENCE PROPOFOL RE-STARTED. PT REPOSITIONED. WILL CONTINUE TO MONITOR.
[2020-04-06] VITALS (741 sets, daily range): BP systolic 113–163; BP diastolic 61–89; PULSE 52–108; TEMP 98.1–99.5; O2SAT 82–100
--- NOTE | 2020-04-06 04:02 | NUR ---
SEADTION OFF AT [address] HERNÁNDEZ'S ORDER.
[2020-04-06 04:53] LABS: ARTERIAL BLD GAS O2 SATURATION 96.1 % (92-100); ARTERIAL BLD GAS TCO2 CT 30.2; ARTERIAL BLOOD GAS BASE EXCESS 6.3 (-2-2); ARTERIAL BLOOD GAS HCO3 29.2 meq/L (22-26); ARTERIAL BLOOD GAS PCO2 34.9 mmHg (35-45); ARTERIAL BLOOD GAS PO2 91.4 mmHg (80-100); ARTERIAL BLOOD GAS pH 7.54 (7.35-7.45)
--- NOTE | 2020-04-06 05:02 | NUR ---
SEDATION HAS BEEN OFF SINCE 399. PT AROUSES TO VOICE AND OPENS EYES AT THIS TIME.
[2020-04-06 05:05] LABS: BASO % 0.4 % (0.0-2.0); EOS # 0.1 (0.0-0.7); EOS % 1.2 % (0-4.0); GRAN # 8.6 (1.4-6.5); GRAN % 79.2 % (42.2-75.2); LYMPH # 1.2 (1.2-3.4); LYMPH % 10.8 % (20.0-51.0); MEAN CELL VOLUME 91 fl (80.0-100.0); MEAN CORPUSCULAR HGB CONC 30 g/dl (33.0-37.0); MEAN PLATELET VOLUME 11.2 fl (7.4-10.4); MONO # 0.9 (0.1-0.6); MONO % 7.9 % (1.7-9.3); PLATELET COUNT 200 K/mm3 (130-400); RED BLOOD COUNT 2.77 M/mm3 (4.20-5.60); REDCELL DISTRIBUTION WIDTH-CV 17.3 % (11.5-14.5)
[2020-04-06 05:06] LABS: HEMATOCRIT 25.2 % (42.0-52.0); HEMOGLOBIN 7.6 g/dl (13.5-18.0); MEAN CORPUSCULAR HEMOGLOBIN 27 pg (27.0-31.0)
[2020-04-06 05:14] LABS: CALCIUM 8.4 mg/dL (8.4-10.2); CREATININE, serum 0.79 (0.66-1.25); POTASSIUM 3.3 mmol/L (3.4-5.0)
--- NOTE | 2020-04-06 06:19 | NUR ---
PATIENT ON WEANING TRIAL OF 08/30. RN NOTIFIED.
--- NOTE | 2020-04-06 07:10 | NUR ---
RECEIVED REPORT FROM ANTHONY ZUÑIGA. PT RESTING EASILY ON SPONATNEOUS MODE TRIAL ON VENT. VSS. FREIGHT ADJUSTER REMAIN IN PLACE AT THIS TIME. FC PATENT AND DRAINING TO GRAVITY. TF PLACED ON HOLD FOR POSSIBEL EXTUBATION TODAY. PT STILL APPEARS DROWSY BUT DOES AROUSE TO VERBAL STIMULI AND LOOKS AT RN.
--- NOTE | 2020-04-06 07:28 | NUR ---
REPORT GIVEN TO ANTHONY PURVIS.
--- NOTE | 2020-04-06 08:10 | NUR ---
DR HERNÁNDEZ AT BEDSIDE FOR ASSESSMENT AND STATES TO PLEASE EXTUBATE.
--- NOTE | 2020-04-06 08:25 | NUR ---
PT EXTUBATED BY RT AND RN. OGT OUT AT THIS TIME AND RESTRAINTS OFF. PT PLACED ON 4L VIA OXYMASK. RR NOTED TO BE HIGH 20s STILL BUT ALL OTHER VSS. CALL LIGHT WITHIN REACH. WILL MONITOR CLOSELY.
--- NOTE | 2020-04-06 09:30 | NUR ---
DR JEFFRIES AT BEDSIDE FOR ASSESSMENT AND UPDATED ON POC AND CHANGES. NO NEW ORDERS RECEIVED.
--- NOTE | 2020-04-06 10:00 | NUR ---
RN NOTIFIED DR ROGER THAT PT'S WORK OF BREATHING STILL APPEARS DISTRESSED AND RR IN THE 30s. PHYSICIAN TO BEDSIDE FOR ASSESSMENT. REQUESTS ABG, RT AWARE.
[2020-04-06 10:11] LABS: ARTERIAL BLD GAS O2 SATURATION 90.1 % (92-100); ARTERIAL BLD GAS TCO2 CT 26.7; ARTERIAL BLOOD GAS BASE EXCESS 2.3 (-2-2); ARTERIAL BLOOD GAS HCO3 25.6 meq/L (22-26); ARTERIAL BLOOD GAS PCO2 34.6 mmHg (35-45); ARTERIAL BLOOD GAS PO2 58.5 mmHg (80-100); ARTERIAL BLOOD GAS pH 7.49 (7.35-7.45)
--- NOTE | 2020-04-06 10:30 | NUR ---
BIPAP PLACED BY RT PER DR ROGER'S ORDERS FROM ABG. FIO2 45%. DR HERNÁNDEZ STATES, IF PT BECOMES AGITATED OR STILL APPEARS TO HAVE INCREASED WORK OF BREATHING TO START PRECEDEX GTT. WILL MONITOR CLOSELY. NEW ORDERS FOR ABG AT 1700, RT AWARE.
[2020-04-06 16:29] LABS: ARTERIAL BLD GAS O2 SATURATION 97.8 % (92-100); ARTERIAL BLD GAS TCO2 CT 23.9; ARTERIAL BLOOD GAS PCO2 30.7 mmHg (35-45); ARTERIAL BLOOD GAS pH 7.49 (7.35-7.45)
--- NOTE | 2020-04-06 19:17 | NUR ---
AFTER REPOSITIONING PT, PT BECOMES AGITATED AND STARTED SWINGING AT NURSING STAFF. PT FOLLOWS SIMPLE COMMANDS BUT DOES NOT SPEAK STILL TO STAFF OR STAY IN BED. SEE MAR.
[2020-04-07] VITALS (706 sets, daily range): BP systolic 112–160; BP diastolic 63–109; PULSE 53–116; TEMP 95.7–97.9; O2SAT 62–100
[2020-04-07 05:48] LABS: BASO % 0.3 % (0.0-2.0); EOS % 0.3 % (0-4.0); GRAN % 83.3 % (42.2-75.2); LYMPH # 0.7 (1.2-3.4); LYMPH % 9.7 % (20.0-51.0); MEAN CELL VOLUME 92 fl (80.0-100.0); MEAN CORPUSCULAR HGB CONC 31 g/dl (33.0-37.0); MEAN PLATELET VOLUME 11.6 fl (7.4-10.4); MONO # 0.4 (0.1-0.6); MONO % 5.6 % (1.7-9.3); PLATELET COUNT 194 K/mm3 (130-400); RED BLOOD COUNT 2.66 M/mm3 (4.20-5.60); REDCELL DISTRIBUTION WIDTH-CV 17.4 % (11.5-14.5)
[2020-04-07 05:52] LABS: HEMATOCRIT 24.5 % (42.0-52.0); HEMOGLOBIN 7.5 g/dl (13.5-18.0); MEAN CORPUSCULAR HEMOGLOBIN 28 pg (27.0-31.0)
[2020-04-07 05:57] LABS: CALCIUM 8.9 mg/dL (8.4-10.2); CREATININE, serum 0.76 (0.66-1.25); POTASSIUM 4.2 mmol/L (3.4-5.0)
--- NOTE | 2020-04-07 11:37 | NUR ---
1130- PT SPO2 98% ON 4L OXYMASK. OXYMASK REMOVED AND PT PLACED ON 2L NC.
--- NOTE | 2020-04-07 11:37 | NUR ---
0840-PT REMOVED FROM BIPAP AND PLACED ON 8L VIA OXYMASK.
--- NOTE | 2020-04-07 16:28 | NUR ---
The patient was extubated and is on 5L of oxygen at this time.
--- NOTE | 2020-04-07 19:30 | NUR ---
REPORT RECEIVED FROM ANTHONY ADAIR. PT'S HEPARIN ON HOLD AT THIS TIME AND NEXT HEP XA AT 2100. PRECEDEX INFUSING AT 0.2 MCG/KG/HR. PT CURRENTLY ON BIPAP WELL WITH HIGH 90'S ON SATURATION.
--- NOTE | 2020-04-07 21:04 | NUR ---
PT TALKED WITH OMKAR. PT ALERT BUT ONLY ORIENTED TO HIS SELF. PT RE-ORIENTED. PT ABLE TO FOLLOW COMMANDS. PT EDUCATED TO NOT GET OUT OF BED AND NOT PULL HIS LINES, PT AGREED. PT NOW ON O2 AT 2 LPM VIA NC WITH OXYGEN SATS AT 96%.
[2020-04-08] VITALS (358 sets, daily range): BP systolic 102–166; BP diastolic 54–96; PULSE 52–97; TEMP 97.6–98.5; O2SAT 30–100
--- NOTE | 2020-04-08 01:49 | NUR ---
PT NOW ALERT AND ORIENTED X 4, ON O2 AT 3LPM SATTING AT 95%. PT DENIES ANY PAIN AFTER GIVING HIM TYLENONL. PT SEEMS TO HAVE THAT RASPY VOICE STILL AND TALKS IN SHORT SENTENCES AND COUPLE OF WORDS AT A TIME BUT DENIES ANY SOB. RR AT 22-26 BPM.
[2020-04-08 04:27] LABS: BASO % 0.4 % (0.0-2.0); EOS % 0.1 % (0-4.0); GRAN # 7.9 (1.4-6.5); GRAN % 82.8 % (42.2-75.2); HEMATOCRIT 26.4 % (42.0-52.0); HEMOGLOBIN 7.8 g/dl (13.5-18.0); MEAN CELL VOLUME 91 fl (80.0-100.0); MEAN CORPUSCULAR HEMOGLOBIN 27 pg (27.0-31.0); MEAN CORPUSCULAR HGB CONC 30 g/dl (33.0-37.0); MEAN PLATELET VOLUME 11.5 fl (7.4-10.4); MONO # 0.6 (0.1-0.6); MONO % 6.1 % (1.7-9.3); PLATELET COUNT 234 K/mm3 (130-400); REDCELL DISTRIBUTION WIDTH-CV 17.4 % (11.5-14.5)
[2020-04-08 04:34] LABS: CALCIUM 9.1 mg/dL (8.4-10.2); CREATININE, serum 0.84 (0.66-1.25); POTASSIUM 3.4 mmol/L (3.4-5.0)
--- NOTE | 2020-04-08 06:15 | NUR ---
PT TALKED TO AGAIN THROUGH PHONE.
--- NOTE | 2020-04-08 07:00 | NUR ---
Report received from ANTHONY Owusu. PT in bed resting with head of bed down and pt sliding down on bed, pt wanted to use bedpan but unable to have BM, boosted back to bed and sitting up. Resting quietly, bed alarm on, will conitnue to monitor.
--- NOTE | 2020-04-08 07:34 | NUR ---
report given to ANTHONY Gold.
--- NOTE | 2020-04-08 08:15 | NUR ---
Pt assisted up with PT and myself to sit at side of bed, 2 max assist and very retro-pulsive, pt staets he is capable of sitting up on own but when i let go he falls backwards quickly. Back in bed and upright, had to feed and provide all water because pt too weak to lift arms and bring silverware to mouth. Fed all of pudding with meds crushed in them but refused any other food, liquids are nectar thick. Denies other needs, denies pain. Guthrie draining clear yellow urine to DD in bag at side of bed. Pt able to answer all orientation questions but stated month was August instead of March. Will continue to [facility].
--- NOTE | 2020-04-08 11:40 | NUR ---
Report given to ANTHONY Last who will resume care. Transported all belongings up to room 329. Transported pt via bed with Surgical CNAs. Shala to resume care. Criteria met
[2020-04-08 14:50] LABS: ARTERIAL BLOOD GAS PCO2 34.4 mmHg (35-45); ARTERIAL BLOOD GAS pH 7.45 (7.35-7.45)
[2020-04-08 14:51] LABS: ARTERIAL BLD GAS O2 SATURATION 98.5 % (92-100); ARTERIAL BLD GAS TCO2 CT 24.5; ARTERIAL BLOOD GAS BASE EXCESS -0.3 (-2-2); ARTERIAL BLOOD GAS HCO3 23.4 meq/L (22-26); ARTERIAL BLOOD GAS PO2 121.8 mmHg (80-100)
[2020-04-08 14:51] LABS: MEAN CELL VOLUME 92 fl (80.0-100.0); MEAN CORPUSCULAR HGB CONC 30 g/dl (33.0-37.0); MEAN PLATELET VOLUME 11.3 fl (7.4-10.4); PLATELET COUNT 304 K/mm3 (130-400); REDCELL DISTRIBUTION WIDTH-CV 17.4 % (11.5-14.5)
[2020-04-08 14:53] LABS: HEMATOCRIT 27.5 % (42.0-52.0); HEMOGLOBIN 8.2 g/dl (13.5-18.0); MEAN CORPUSCULAR HEMOGLOBIN 27 pg (27.0-31.0)
--- NOTE | 2020-04-08 15:07 | NUR ---
placed pt on bipap previous settings.
[2020-04-08 15:12] LABS: ALBUMIN 3.7 gm/dL (3.5-5.0); BILIRUBIN,TOTAL 0.6 mg/dL (0.0-1.0); CALCIUM 9.1 mg/dL (8.4-10.2); CREATININE, serum 0.93 (0.66-1.25); MAGNESIUM 2.3 mg/dL (1.6-2.3); PHOSPHOROUS 4.4 mg/dL (2.5-4.5); POTASSIUM 3.8 mmol/L (3.4-5.0); TOTAL PROTEIN 7.4 gm/dL (6.4-8.2)
[2020-04-08 15:22] LABS: TROPONIN-I 0.021 ng/mL (0.000-0.035)
--- NOTE | 2020-04-08 18:04 | NUR ---
THIS NURSE WALKED INTO PT ROOM TO ASSIST IN CHANGING SOILED BRIEF. PT WAS BECOMING PURPLE IN THE FACE AND LESS ALERT AND RESPONSIVE. PT WAS SAT UP AND OXYGEN TURNED UP. NO IMPROVEMENT SO OXY MASK WAS GIVEN AND HALIE TORREZ AND RESPIRATORY WERE NOTIFIED OF THE SITUATION. DR. JEFFRIES WAS CALLED AT 1423, RT WAS AT BEDSIDE AT 1423. ORDERS WERE LABS, ABG, CXR. AT 1426 SPO2 WAS AT 95%, HR AT 73 AND BP 185/79. DR JEFFRIES AT BEDSIDE AT 1429. PT PLACED ON BIPAP ORIGINALLY AT 50% AND SATS AT 99%. LATER CHANGED TO 40%. DR. JEFFRIES ORDERED BUMEX 1 MG IV. PT HAD BEEN GIVEN ATIVAN 2 MG AN HOUR PRIOR AND HIS FIRST DOSE OF SOTALOL AN HOUR PRIOR WELL.
--- NOTE | 2020-04-08 18:09 | NUR ---
PT WAS OFF OF HEPARIN DRIP FOR MORE THAN 2 HOURS. A 1,000 UNIT BOLUS WAS GIVEN AND THE INFUSION WAS RESTARTED AT PREVIOUS RATE OF 13 ML/HR VERIFIED BY CHARGE NURSE KATERYNA. HEPXA TO BE REDRAWN IN 6 HOURS.
--- NOTE | 2020-04-08 20:41 | NUR ---
Pt restless in bed. Repositioned with staff. Takes HS meds crushed in applesauce. Has tracheal wheezing, lungs sound clear. Wearing oxymask with 4L O2. Ativan 1mg IVP given for restlessness. Oral care provided as well as heredia cares. Has blister to left heel, skin prep applied with heel boot. RT PICC intact, has Heparin gtt infusing at 13cc/hr to purple port, red port flushes well with good blood return. Is confused to place and time. Asking to get up and go to the store. Bed alarm on.
--- NOTE | 2020-04-08 22:20 | NUR ---
Pt restless, audible wheezing noted. Oxygen sats 88%, increased O2 to 3L per oxymask and notified RT. Placed on Bipap at this time by RT. Pt immediately calms.
--- NOTE | 2020-04-09 01:00 | NUR ---
HEP XA=0.28, INCREASED RATE OF HEP GTT TO 14CC/HR OR 1400U/HR. NEXT XA AT 0700.
--- NOTE | 2020-04-09 01:16 | NUR ---
PT RESTLESS IN BED. MEDICATED WITH ATIVAN 1MG IVP AT THIS TIME.
--- NOTE | 2020-04-09 03:22 | NUR ---
Pt restless, Ativan 1mg IVP given.
[2020-04-09 03:23] VITALS: BP 135/70; PULSE 65; TEMP 97.8
--- NOTE | 2020-04-09 04:19 | NUR ---
CALLED BY RN AROUND 0 DUE TO PT BECOMING RESTLESS AND WORK OF BREATHING HAS INCREASED. PT HAD NO PRN BREATHING TREATMENTS ONLY BID WHICH WAS ALREADY GIVEN. PT WAS ON A 2 LPM OXYMASK. I PLACED PT ON BIPAP AND PT BECAME MORE RELAXED AND WENT TO SLEEP. PT JUST NEEDED PRESSURE AND MORE AIR. HE WAS RESTLESS DUE TO AIR HUNGER. PT HAS BEEN ON BIPAP ALL NIGHT GILBERT VERY WELL. NO DISTRESS NOTED AT THIS TIME.
--- NOTE | 2020-04-09 06:28 | NUR ---
Pt continues to be restless, placed heel protector on left foot with sock to prevent pt from rubbing heel on bed. Remains on the Bipap, confused. Takes AM med with sip of water, swallows well.
--- NOTE | 2020-04-09 06:56 | NUR ---
PT GETTING HEP XA DRAWN AT BEDSIDE SHIFT REPORT. PT ABLE TO SLEEP FOR 4 HOURS DURING THE NIGHT. PT CONTINUES TO BE RESTELSS.
[2020-04-09 07:33] VITALS: BP 153/65; PULSE 66; TEMP 97.4
[2020-04-09 07:40] LABS: BASO # 0.1 (0.0-0.2); BASO % 0.7 % (0.0-2.0); EOS # 0.1 (0.0-0.7); EOS % 0.6 % (0-4.0); GRAN # 6.5 (1.4-6.5); GRAN % 76.3 % (42.2-75.2); LYMPH # 1.1 (1.2-3.4); LYMPH % 13.5 % (20.0-51.0); MEAN CELL VOLUME 91 fl (80.0-100.0); MEAN CORPUSCULAR HGB CONC 30 g/dl (33.0-37.0); MEAN PLATELET VOLUME 11.4 fl (7.4-10.4); MONO # 0.7 (0.1-0.6); MONO % 8.3 % (1.7-9.3); PLATELET COUNT 257 K/mm3 (130-400); RED BLOOD COUNT 3.02 M/mm3 (4.20-5.60); REDCELL DISTRIBUTION WIDTH-CV 17.3 % (11.5-14.5)
[2020-04-09 07:42] LABS: HEMATOCRIT 27.5 % (42.0-52.0); HEMOGLOBIN 8.1 g/dl (13.5-18.0); MEAN CORPUSCULAR HEMOGLOBIN 27 pg (27.0-31.0)
[2020-04-09 07:51] LABS: ALBUMIN 3.5 gm/dL (3.5-5.0); BILIRUBIN,TOTAL 0.7 mg/dL (0.0-1.0); CREATININE, serum 1.04 (0.66-1.25); POTASSIUM 3.3 mmol/L (3.4-5.0)
[2020-04-09 08:01] LABS: INR 1.3 (0.8-3.0); PROTHROMBIN TIME 14.8 SECONDS (9.7-12.8)
[2020-04-09 12:00] VITALS: BP 156/84; PULSE 77; TEMP 99.2
--- NOTE | 2020-04-09 15:14 | NUR ---
PT ARRIVED TO THE FLOOR, IN ROOM WITH BIPAP ON AT THIS TIME.
--- NOTE | 2020-04-09 15:16 | NUR ---
PT WAS ATTEMPTED ON OXY MASK THIS AM BUT WAS LABORING HEAVILY TO BREATHE, RT CAME AND RESTARTED BIPAP. PT WAS VERY AGIATED THIS AM. STATED HE WAS ANGRY TO THE HOSPITALIST BUT WAS CONFUSED AND UNABLE TO SAY WHY. PT DID TELL STAFF NO SEVERAL TIMES AND TRY TO PUSH US AWAY WHEN HELPING HIM TO STRAIGHTEN OUT IN BED. PT CONTINUED TO ATTEMPT TO GET OUT OF BED. SERAQUIL GIVEN AROUND 0930. PT DID RELAX SOME THE REST OF THE MORNING AND A DOSE OF ATIVAN WAS GIVEN AROUND 1400. KESSLER CATHETER DC'D DUE TO DISCOMFORT. PT DID VOID PRIOR TO BEING MOVED TO ROOM 305. PT WAS PUT ON DROPLET ISOLATION DUE TO BEING TESTED FOR COVID. HOSPITALIST WANTED TO DOUBLE CHECK. THIS NURSE, ELECTRICAL CONTROLS DESIGNER, AND RT MOVED PT IN BED TO ROOM 305 WITH A CLEAN SHEET OVER HIM.
--- NOTE | 2020-04-09 15:40 | NUR ---
HEPARIN CHANGED TO 16ML/HRPER HEPARIN HIGH DOSE PROTOCOL, WITNESSED BY CARLY CRUZ. TOOK OFF BIPAP TO GIVE PT MEDICATION ORALLY, PT WOULD NOT SWALLOW MEDICATION, GOT APPLESAUCE OUT OF PT MOUTH AND PLACED BIPAP BACK ON PT. PT APPEARS RESTLESS IN BED AT THIS TIME SO ATIVAN WILL BE GIVEN.
[2020-04-09 15:48] VITALS: BP 140/80; PULSE 65; TEMP 98.4
--- NOTE | 2020-04-09 17:13 | NUR ---
PT RESTLESS IN BED EVEN WITH ATIVAN. MITTS ON PT TO PREVENT PT PULLING BIPAP OFF. PT VITALS STABLE, MEDICATIONS GIVEN. HEPXA DUE FOR 2139. NO OTHER NEEDS AT THIS TIME. PT DID NOT SWALLOW APPLESAUCE WHEN TRYING TO GIVE PILLS.
--- NOTE | 2020-04-09 18:42 | NUR ---
PT SLIDING DOWN IN BED. PT BOOSTED IN BED, PERICARE COMPLETED DUE TO URINE INCONTINENCE, NO STOOL AT THIS TIME. PT STARTING SLIDING OUT OF BED WHEN WE WERE FINISHED BOOSTING. PT NODDING HEAD IN UNDERSTANDING WHEN ASKED TO LAY IN BED, BED ALARM ON, BIPAP ON, NO OTHER NEEDS AT THIS TIME.
--- NOTE | 2020-04-09 18:52 | NUR ---
Report received from ANTHONY Joiner. Pt lying in bed. Has been attempting to get out of bed on and off, easily redirected. BIPAP in place. Denies needs at this time. Bed alarm on, video monitor in place.
[2020-04-09 19:09] VITALS: BP 142/78; PULSE 68; TEMP 98
--- NOTE | 2020-04-09 20:00 | NUR ---
Shift assessment complete. Pt lying in bed. BIPAP removed to administer medications crushed in applesauce. Attempted to administer Librium capsule but pt unable to swallow whole pills at this time. Mitts removed while this RN in room, pt not touching BIPAP so will leave mitts off at this time. Incontinent of urine, linens changed. Blister to left heel with heel pad on. Scrotum red and excoriated. Heparin drip running at 16 ml/hr. Heart RRR, lungs coarse to auscultation, breathing regular and unlabored, alert and partially oriented. Will continue to monitor.
[2020-04-10] VITALS (7 sets, daily range): BP systolic 102–157; BP diastolic 54–86; PULSE 52–91; TEMP 97.5–98.5
[2020-04-10 06:48] LABS: BASO % 0.4 % (0.0-2.0); EOS # 0.1 (0.0-0.7); EOS % 1.7 % (0-4.0); GRAN # 5.1 (1.4-6.5); GRAN % 73.4 % (42.2-75.2); MEAN CELL VOLUME 91 fl (80.0-100.0); MEAN CORPUSCULAR HGB CONC 29 g/dl (33.0-37.0); MEAN PLATELET VOLUME 11.6 fl (7.4-10.4); MONO # 0.7 (0.1-0.6); MONO % 10.1 % (1.7-9.3); PLATELET COUNT 216 K/mm3 (130-400); RED BLOOD COUNT 2.74 M/mm3 (4.20-5.60); REDCELL DISTRIBUTION WIDTH-CV 17.1 % (11.5-14.5)
[2020-04-10 06:50] LABS: ALBUMIN 3.1 gm/dL (3.5-5.0); BILIRUBIN,TOTAL 0.8 mg/dL (0.0-1.0); CALCIUM 8.5 mg/dL (8.4-10.2); CREATININE, serum 0.9 (0.66-1.25); POTASSIUM 3.1 mmol/L (3.4-5.0); TOTAL PROTEIN 6.3 gm/dL (6.4-8.2)
[2020-04-10 06:53] LABS: INR 2.8 (0.8-3.0); PROTHROMBIN TIME 31.3 SECONDS (9.7-12.8)
[2020-04-10 07:04] LABS: HEMATOCRIT 24.9 % (42.0-52.0); HEMOGLOBIN 7.3 g/dl (13.5-18.0); MEAN CORPUSCULAR HEMOGLOBIN 27 pg (27.0-31.0)
--- NOTE | 2020-04-10 12:06 | NUR ---
Chaplain grimes for patient while standing down the alarcon.
--- NOTE | 2020-04-10 15:13 | NUR ---
SW contacted the patient's , Jose, to follow up and review d/c plan. The patient is a PUI for COVID and awaiting results. He continues to be disoriented. SW discussed the need for possible SNF upon discharge. Jose reports that she would like for the patient to come home. She is hopeful that his mental status clears up and he is able to work with therapy. SW to continue to follow.
--- NOTE | 2020-04-10 15:52 | NUR ---
Patient Alert and confused today. He keeps trying to get out of bed. Given PRN Ativan, will continue to monitor. Patient has a heel protector on his left heel from deep tissue injury. Patient incontinent of stool this morning, smears only. Patient incontinent of urine today and had a episode where he knocked all his food on the floor and his drinks. Two assist with changing bed, cleaning patient up and changing patient's gown. Patient currently on oxygen 5 liters at this time. Will continue to monitor.
--- NOTE | 2020-04-10 18:45 | NUR ---
Report received from ANTHONY Wan. Pt lying in bed. Bed alarm on, video monitor in place. Mildly agitated and attempting to scoot out of bed, easily redirected.
[2020-04-10 19:04] LABS: HEMATOCRIT 27.5 % (42.0-52.0); HEMOGLOBIN 8.1 g/dl (13.5-18.0)
--- NOTE | 2020-04-10 19:40 | NUR ---
Shift assessment complete. Pt agitated and attempting to get out of bed, PRN seroquel administered with night time meds. Meds crushed and given in applesauce. Pt ate half of applesauce and three spoonfuls of sherbet. Alert, partially oriented. Caps to right upper arm PICC with dried blood, caps changed. Heparin drip stopped per orders. Heart RRR, lungs coarse to auscultation. Pt more talkative tonight and smiling frequently. NC on with O2 at 5L. Mitts removed and pt not attempting to pull off NC. Will continue to monitor.
--- NOTE | 2020-04-10 22:00 | NUR ---
COVID sendout negative. Pt moved to room 312. Isolation precautions d/c'd.
[2020-04-11] VITALS (7 sets, daily range): BP systolic 127–160; BP diastolic 62–75; PULSE 59–98; TEMP 98–98.7
--- NOTE | 2020-04-11 06:33 | NUR ---
Pt has been restless throughout night. Remained on NC, weaned from 5L to 3L. Placed back on Bipap this AM by RT due to sleepiness. Pt more agitated with Bipap on but has not pulled at mask. Mitts have remained off all night. Pt more coherent as night went on. Pt talked with on room phone. Resting in bed at this time.
[2020-04-11 06:34] LABS: BASO % 0.6 % (0.0-2.0); EOS # 0.2 (0.0-0.7); EOS % 2.6 % (0-4.0); GRAN # 5.1 (1.4-6.5); GRAN % 72.3 % (42.2-75.2); LYMPH % 14.7 % (20.0-51.0); MEAN CELL VOLUME 91 fl (80.0-100.0); MEAN CORPUSCULAR HGB CONC 30 g/dl (33.0-37.0); MEAN PLATELET VOLUME 11.4 fl (7.4-10.4); MONO # 0.7 (0.1-0.6); MONO % 9.4 % (1.7-9.3); PLATELET COUNT 227 K/mm3 (130-400); RED BLOOD COUNT 2.91 M/mm3 (4.20-5.60); REDCELL DISTRIBUTION WIDTH-CV 16.7 % (11.5-14.5)
[2020-04-11 06:39] LABS: INR 1.9 (0.8-3.0); PROTHROMBIN TIME 21.2 SECONDS (9.7-12.8)
[2020-04-11 06:42] LABS: HEMATOCRIT 26.4 % (42.0-52.0); HEMOGLOBIN 7.8 g/dl (13.5-18.0); MEAN CORPUSCULAR HEMOGLOBIN 27 pg (27.0-31.0)
[2020-04-11 06:46] LABS: CALCIUM 8.8 mg/dL (8.4-10.2); CREATININE, serum 0.85 (0.66-1.25); POTASSIUM 3.3 mmol/L (3.4-5.0)
--- NOTE | 2020-04-11 08:00 | NUR ---
Patient resting in bed, is sleeping but rouses easily, is alert but confused while awake. Patient on NC at 3L, SpO2 WNL. Patient gives no indications of pain. Is able to take medications crushed in apple sauce, swallows with no issues. Sitter positioned outside the door, patient is visible from door. bed alarm on.
[2020-04-11 15:10] LABS: CLOSTRIDIUM DIFF A/B NEG; CLOSTRIDIUM DIFF A/B INTERP No C.diff present
--- NOTE | 2020-04-11 16:00 | NUR ---
SW attempted to contact the patient's , Jose, to follow up about d/c plan. Jose's voicemail has not been set up and SW is unable to leave a message. SW attempted to contact the patient's daughter, Alise. SW left her a voicemail.
--- NOTE | 2020-04-11 16:28 | NUR ---
Patient is becoming increasingly agitated as the day progresses. He has attempted to pull out his PICC line and get out of bed unassisted several times. Mitts in place to prevent PICC line removal. PRN medication given for agitation. Sitter outside room, bed alarm on.
--- NOTE | 2020-04-11 19:10 | NUR ---
Received report from Sara. Seen patient awake, lying in bed. With mittens on both hands. With heel protector on feet. With PICC line on right upper arm. On O2 at 2lpm via high flow nasal cannula. Patient is alert and disoriented. Bed alarm on. Side rails up. Sitter placed outside the door.
--- NOTE | 2020-04-11 20:06 | NUR ---
Night medicines given. Pills crushed and mixed in apple sauce. He denies pain. He is incontinent of urine and stool. Diapers changed. Applied barrier cream and mepilex on his buttocks. His scrotum is reddened on the posterior area.
--- NOTE | 2020-04-11 22:20 | NUR ---
Patient had a witnessed fall. Edvin the sitter was sitting outside the room as she was keeping an eye for Rm. 312 amd 313. Edvin states patient roll on his right side and fell on the floor. All side rails were up and bed alarm is on. He didn't hit his head. No injuries noted. Bedside nurse, Paloma CRUZdischarge door operator nurse and two other CARD STRIPPER went inside the room to bring patient back to bed. He is unsteady. Gaitbelt placed and pull the bed closer to patient. Vital signs were taken post fall. Repositioned patient in bed. Placed pillows on the side of the bed to cover the spaces in between the side rails.
--- NOTE | 2020-04-11 22:35 | NUR ---
This nurse informed Amber TORRES via phone call regarding fall incident. Paloma CRUZ decided to place the sitter inside the patient's room to monitor him closely.
--- NOTE | 2020-04-11 22:40 | NUR ---
Amber TORRES went inside patient's room to check on him. He is still confused and doesn't know where he is right now. He was able to obey commands like lifting his arm. Patient is calm at this time but still awake. Amber said it's okay not to give Ativan for now since he is not agitated but if he tries to get out of bed again and is restless, I could give him an Ativan.
[2020-04-12 03:50] VITALS: BP 105/51; PULSE 72; TEMP 98.6
[2020-04-12 06:04] VITALS: BP 124/56; PULSE 69; TEMP 98.8
--- NOTE | 2020-04-12 06:26 | NUR ---
Patient had been awake most of the night. He is not agressive. He just kept on rolling on the bed and dangling his legs on the side. Sitter stayed inside the room the whole time. Patient's called asking about patient's condition. She said she will try to call again at around 10am. For some reason, she said she cannot hear sometimes the doctor who are calling her and her phone doesn't have a voicemail. Questions have been answered regarding patient's status right now.
[2020-04-12 06:32] LABS: INR 1.9 (0.8-3.0); PROTHROMBIN TIME 21.9 SECONDS (9.7-12.8)
[2020-04-12 06:40] LABS: BASO % 0.3 % (0.0-2.0); EOS # 0.2 (0.0-0.7); EOS % 2.1 % (0-4.0); GRAN # 9.1 (1.4-6.5); GRAN % 78.6 % (42.2-75.2); HEMATOCRIT 29.6 % (42.0-52.0); HEMOGLOBIN 8.8 g/dl (13.5-18.0); LYMPH # 1.2 (1.2-3.4); LYMPH % 10.2 % (20.0-51.0); MEAN CELL VOLUME 90 fl (80.0-100.0); MEAN CORPUSCULAR HEMOGLOBIN 27 pg (27.0-31.0); MEAN CORPUSCULAR HGB CONC 30 g/dl (33.0-37.0); MEAN PLATELET VOLUME 11.6 fl (7.4-10.4); MONO % 8.4 % (1.7-9.3); PLATELET COUNT 285 K/mm3 (130-400); RED BLOOD COUNT 3.28 M/mm3 (4.20-5.60); REDCELL DISTRIBUTION WIDTH-CV 16.7 % (11.5-14.5)
[2020-04-12 06:41] LABS: ALBUMIN 3.7 gm/dL (3.5-5.0); BILIRUBIN,TOTAL 0.8 mg/dL (0.0-1.0); CALCIUM 9.1 mg/dL (8.4-10.2); CREATININE, serum 0.92 (0.66-1.25); POTASSIUM 3.4 mmol/L (3.4-5.0); TOTAL PROTEIN 7.4 gm/dL (6.4-8.2)
--- NOTE | 2020-04-12 08:00 | NUR ---
PT REPORTED HAVING PAIN IN HIS HEART BUT THEN WHEN ASKED FURTHER IF IT WAS CHEST PAIN HE JUST REPEATED THE WORDS CHEST PAIN BUT DID NOT ELABORATE ON DISCOMFORT. WHEN ASKED AGAIN PT DID NOT RESPOND. ASSESSMENT PERFORMED, TANG AREA REDDENED BUT BLANCHABLE. PT AGITATED AND TRYING TO GET OUT OF BED MULTIPLE TIMES. ATIVAN GIVEN WITH OTHER MORNING MEDICATIONS. POTASSIUM HUNG PER PROTOCOL. VITALS REVIEWED. PERICARE PROVIDED SINCE PT INCONTINENT. PT ALERT TO PERSON AND PLACE. PT STATES "IT'S NOT GOOD TO HAVE 2 ALCOHOLICS . ALCOHOL DID THIS TO ME THERES NO OTHER EXCUSE". PT WORKED WITH PT AND PT CURRENTLY UP TO CHAIR IN ROOM. CHAIR ALARM IN PLACE. BED SHEETS CHANGED. NO OTHER NEEDS AT THIS TIME
--- NOTE | 2020-04-12 09:10 | NUR ---
SW contacted the patient's , Jose, to review d/c plan and to discuss post-acute rehab. Jose is agreeable to post-acute rehab. She states that she would prefer [facility], but is open to SW sending referrals to other facilities. SW consulted [facility] Director, Any. SW sending referrals to other facilities.
--- NOTE | 2020-04-12 09:56 | NUR ---
Gravity Prospecting Observer faxed referrals to [facility], [facility], [facility], [facility], [facility], [facility] and [facility]. [facility] has declined the patient.
--- NOTE | 2020-04-12 10:45 | NUR ---
Follow up from the anthropologist. Chaplain grimes for patient.
--- NOTE | 2020-04-12 10:47 | NUR ---
CALLED, WANTING TO GET PT'S PHONE, DISTILLERY WORKER GENERAL, KEYS, AND WALLET. FOUND WALLET, PHONE AND PHONE DISTILLERY WORKER GENERAL IN ROOM. COULD NOT FIND KEYS WITH PT BELONGINGS. PT SAYS KEYS ARE IN THE CAR, CALLED BACK TO GET DESCRIBPTION OF CAR. SECURITY NOTIFIED AND LOOKING FOR KEYS BY OR IN THE VEHICLE.
--- NOTE | 2020-04-12 11:05 | NUR ---
KEYS FOUND IN PT OMKAR POCKET. BELONGINGS BROUGHT DOWN TO ED. CALLED AND NOTIFIED.
[2020-04-12 12:00] VITALS: BP 147/88; PULSE 83; TEMP 98.1
--- NOTE | 2020-04-12 15:02 | NUR ---
Lillie, at [facility] (ph#[phone]), in [place] reports that they are able to accept the patient for a skilled stay and will contact SANDRA tomorrow to coordinate a picking tech time, if able to d/c. SANDRA contacted and updated the patient's , Jose. Jose was hopeful a closer facility could take, but is open to [facility].
--- NOTE | 2020-04-12 15:35 | NUR ---
Supply Aide contacted facilities regarding acceptance. Gregorio with [facility] reports that they cannont accept the patient for post acute rehab. [facility] is currently not taking patients. [facility] cannot take as long the patient has a sitter but will follow along. SANDRA contacted [facility] with [facility] regarding referral, left message. Sixto with [facility] reports they are reviewing the referral. [facility] cannot accept the patient.
[2020-04-12 15:52] VITALS: BP 110/55; PULSE 67; TEMP 98.2
--- NOTE | 2020-04-12 16:28 | NUR ---
PT CALLED AND WAS UPDATED.
--- NOTE | 2020-04-12 17:06 | NUR ---
PT PLEASANTLY CONFUSED. PT HAD ATIVAN X2 IN AM BUT NONE SINCE. PT INDEPENDENT MOVING IN BED, ROLLING OFF OF SORE TANG AREA/SACRAL AREA. PT HAD MULTIPLE BM, INC OF BM AND URINE. TANG CARE PROVIDED AND BARRIER CREAM APPLIED TO AREA AND SCROTUM. PT DENIES PAIN BUT WHEN LAYING ON BACK PT WILL WINCE. PT BELONGINGS (WALLET, PHONE, PHONE PROFESSIONAL BASS FISHERMAN, AND CAR KEYS PLACED IN BIOHAZARD BAG AND IN PT ROOM WITH PT LABEL. REPORTS THAT A MAN NAMED JADIEL BUTT WILL PICK IT UP TOMORROW IN AM AT ER ENTRANCE. WILL PASS ALONG IN REPORT. [facility] ACCEPTED PT. NO OTHER NEEDS AT THIS TIME.
--- NOTE | 2020-04-12 17:27 | NUR ---
PT BECOMING AGITATED AND HALLUCINATING. PT TRYING TO GET OUT OF BED AND "GET DRESSED AND GO TO MY ROOM". PT REORIENTED AND GIVEN 1MG ATIVAN.
[2020-04-12 19:34] VITALS: BP 109/54; PULSE 70; TEMP 98.4
--- NOTE | 2020-04-12 22:03 | NUR ---
PT ALERT BUT CONFUSED, DENIES ANY PAIN OR SOB. PT ON 02 AT 2LPM VIA NC. PT HAS LOW APPETITE BUT ABLE TO FINISH APPLE SAUCE AND ABLE TO DRINK NECTAR THICK WATER. PT HAS EXCORIATION ON HIS BUTTOCKS THAT IS SLIGHTLY BLEEDING AND SCROTUM IS EXCORIATED BUT INTACT. LEFT HEEL WOUND IS A BLISTER THAT HAS POPPED, RED AND SMALL. FOAM PAD APLLIED IN LEFT HEEL AND KEPT FLOATED. PT RE-ORIENTED, REMAINS ON 1:1 [address]UTIONS IN PLACE. WILL CONTINUE TO MONITOR.
[2020-04-12 23:17] VITALS: BP 116/55; PULSE 60; TEMP 97.8
[2020-04-13 03:51] VITALS: BP 131/77; PULSE 63; TEMP 97.6
--- NOTE | 2020-04-13 06:17 | NUR ---
pt's Jose called and updated, all questions answered. Jose requesting that pt's belongings be put at ED entrance, this RN advise to just let the person at the desk/window call us once pick-up person is here as he has his cp in the bag. agreed.
--- NOTE | 2020-04-13 06:51 | NUR ---
report given to ANTHONY Queen.
[2020-04-13 07:05] LABS: INR 1.8 (0.8-3.0); PROTHROMBIN TIME 20.6 SECONDS (9.7-12.8)
--- NOTE | 2020-04-13 07:40 | NUR ---
PT IS CURRENTLY LAYING IN BED. HAS NO COMPLAINTS OF PAIN OR DISCOMFORT. ASSESSMENT COMPLETED. PT IS ON A 04/28 SITTER WITH SHERIDAN PAYTON. WE ARE CONTINUALLY WATCHING THIS PT HE DOES MOVE QUICKLY AND HAS FALLEN SEVERAL TIMES. THIS RN WAS ABLE TO ORIENT HIM, AND TALKED TO HIM ABOUT USING THE CALL LIGHT IF HE FEELS IF HE WANTS TO GET UP. THERE ARE NO FURTHER CONCERNS AT THIS TIME. CALL LIGHT IS ON PATIENTS LAP AND WITHIN REACH.
[2020-04-13 07:45] VITALS: BP 105/55; PULSE 63; TEMP 97.9
[2020-04-13] MEDS ORDERED: COUMADIN4 MG PO (09:33)
[2020-04-13] MEDS ORDERED: PERFOROMIS20 MCG/2 M IH (09:33)
[2020-04-13] MEDS ORDERED: BETAPACE 80MG80 MG PO (09:34)
[2020-04-13] MEDS ORDERED: SEROQUEL 2525 MG/TAB PO (09:34)
[2020-04-13] MEDS ORDERED: DUO-KAPS1 CAP PO (09:35)
[2020-04-13] MEDS ORDERED: BUMEX 1MG TA1 MG/TA1 PO (09:35)
[2020-04-13] MEDS ORDERED: FOLIC ACID 11 MG/TA1 PO (09:35)
[2020-04-13] MEDS ORDERED: PULMICORT0.5 MG/2 M IH (09:35)
[2020-04-13] MEDS ORDERED: THIAMINE 1100 MG/TAB PO (09:36)
[2020-04-13] MEDS ORDERED: PROTONIX 40MG T40 MG PO (09:38)
[2020-04-13] MEDS ORDERED: K-DUR 10 MEQ T10 MEQ PO (09:38)
--- NOTE | 2020-04-13 11:22 | NUR ---
The patient is to discharge to [facility] today, 04/13 for post acute rehab. Lillie with [facility] can picker and packer the patient at 1300. The team was in agreeance. SW to fax discharge orders. SANDRA contacted the patient's Jose with the above update. She was in agreeance. SANDRA presented the IM form to Jose. She verbalized understanding and gave SANDRA permission to sign on her behalf. She requested a copy be emailed to [email or web address]. Copy emailed and original placed in the chart. There are no additional needs at this time.
[2020-04-13 11:55] VITALS: BP 101/50; PULSE 56; TEMP 97.8
[2020-04-13 13:17] VITALS: BP 101/50; PULSE 56; TEMP 97.8
--- NOTE | 2020-04-13 13:43 | NUR ---
PT IS DISCHARGED TO [facility] VIA. THIS RN WILL CALL AND GIVE REPORT TO RECEIVING RN.
--- NOTE | 2020-04-13 14:27 | NUR ---
REPORT CALLED TO LISA OZUNA.
== END 2020-04-13 14:10 | DRG 432 ==
LOC: COL.ER 10:38 → SURG 15:51 → ICU 03-26 16:30 → JCC 04-08 11:24 → SURG 04-08 17:24 → MEDICAL 04-09 15:11
PROVIDERS: Emergency Medicine; Family Medicine; Hospitalist; Internal Medicine Gastroenterology; Internal Medicine Pulmonary Disease; Physician Assistant; Student in an Organized Health Care Education/Training Program; ADMIT Internal Medicine
PROC: 0BH17EZ Insertion of Endotracheal Airway into Trachea, Via Natural or Artificial Opening (ICD-10-PCS; 2020-03-26)
PROC: 5A1955Z Respiratory Ventilation, Greater than 96 Consecutive Hours (ICD-10-PCS; 2020-03-26)
PROC: 02HV33Z Insertion of Infusion Device into Superior Vena Cava, Percutaneous Approach (ICD-10-PCS; 2020-03-26)
PROC: 06L38CZ Occlusion of Esophageal Vein with Extraluminal Device, Via Natural or Artificial Opening Endoscopic (ICD-10-PCS; principal; 2020-03-26 09:30)
PROC: 02HV33Z Insertion of Infusion Device into Superior Vena Cava, Percutaneous Approach (ICD-10-PCS; 2020-03-28)
DX: K74.60 Unspecified cirrhosis of liver (principal); I85.11 Secondary esophageal varices with bleeding; K29.21 Alcoholic gastritis with bleeding; J96.01 Acute respiratory failure with hypoxia; I50.33 Acute on chronic diastolic (congestive) heart failure; J18.9 Pneumonia, unspecified organism; E87.2 Acidosis; E87.1 Hypo-osmolality and hyponatremia; I82.622 Acute embolism and thrombosis of deep veins of left upper extremity; T82.868A Thrombosis due to vascular prosthetic devices, implants and grafts, initial encounter; D62 Acute posthemorrhagic anemia; F10.231 Alcohol dependence with withdrawal delirium; K76.6 Portal hypertension; Z20.828 Contact with and (suspected) exposure to other viral communicable diseases; K76.0 Fatty (change of) liver, not elsewhere classified; I48.0 Paroxysmal atrial fibrillation; G62.9 Polyneuropathy, unspecified; I35.0 Nonrheumatic aortic (valve) stenosis; D69.6 Thrombocytopenia, unspecified; R45.1 Restlessness and agitation; R06.82 Tachypnea, not elsewhere classified; I11.0 Hypertensive heart disease with heart failure; F17.210 Nicotine dependence, cigarettes, uncomplicated; Y83.9 Surgical procedure, unspecified as the cause of abnormal reaction of the patient, or of later complication, without mention of misadventure at the time of the procedure; Z87.11 Personal history of peptic ulcer disease
CPT/HCPCS: 99223-AI; 99232-AI; 99233-AI; 99239; C1751; C9113; J0282; J0330; J1170; J1644; J1650; J1815; J1940; J2060; J2250; J2270; J2354; J2405; J2543; J2550; J2704; J2920; J3010; J3360; J3370; J3475; J3480; J7030; J7040; J7050; J7060; J7120; Q9967

== ENCOUNTER 2020-05-31 00:02 | Observation (INO) | payer MEDICARE ==
[~2020-05-31] VITALS: Ht 177.8 cm; Wt 96.1 kg
[2020-05-31] VITALS (10 sets, daily range): BP systolic 120–145; BP diastolic 53–62; PULSE 58–64; TEMP 97.8
[~2020-05-31 00:02] MED LIST changes: +BETAPACE 80MG80 MG PO; +BUMEX 1MG TA1 MG/TA1 PO; +COUMADIN4 MG PO; +DUO-KAPS1 CAP PO; +FOLIC ACID 11 MG/TA1 PO; +K-DUR 10 MEQ T10 MEQ PO; +PERFOROMIS20 MCG/2 M IH; +PULMICORT0.5 MG/2 M IH; +SEROQUEL 2525 MG/TAB PO; +THIAMINE 1100 MG/TAB PO
[2020-05-31 00:36] LABS: BASO # 0.1 (0.0-0.2); BASO % 0.9 % (0.0-2.0); EOS # 0.2 (0.0-0.7); EOS % 3.4 % (0-4.0); GRAN # 3.1 (1.4-6.5); LYMPH # 1.2 (1.2-3.4); LYMPH % 21.8 % (20.0-51.0); MEAN CELL VOLUME 81 fl (80.0-100.0); MEAN CORPUSCULAR HGB CONC 31 g/dl (33.0-37.0); MEAN PLATELET VOLUME 10.1 fl (7.4-10.4); MONO # 0.8 (0.1-0.6); MONO % 15.5 % (1.7-9.3); PLATELET COUNT 176 K/mm3 (130-400); RED BLOOD COUNT 3.27 M/mm3 (4.20-5.60); REDCELL DISTRIBUTION WIDTH-CV 16.8 % (11.5-14.5)
[2020-05-31 00:38] LABS: HEMATOCRIT 26.6 % (42.0-52.0); HEMOGLOBIN 8.1 g/dl (13.5-18.0); MEAN CORPUSCULAR HEMOGLOBIN 25 pg (27.0-31.0)
[2020-05-31 00:41] LABS: PROTHROMBIN TIME 11.7 SECONDS (9.7-12.8)
[2020-05-31 00:44] LABS: PARTIAL THROMBOPLASTIN TIME 23.6 SECONDS (26.0-37.0)
[2020-05-31 00:49] LABS: ALANINE AMINOTRANSFERASE 17 U/L (4-49); ALKALINE PHOSPHATASE 87 U/L (50-136); ANION GAP 8 mmol/L (7-16); AST,SGOT 35 U/L (15-37); BILIRUBIN,TOTAL 0.5 mg/dL (0.0-1.0); BLOOD UREA NITROGEN 14 mg/dL (9-20); CALCIUM 8.7 mg/dL (8.4-10.2); CARBON DIOXIDE 27 mmol/L (22-30); CHLORIDE 100 mmol/L (98-107); CREATININE, serum 0.86 (0.66-1.25); GLUCOSE 113 mg/dL (74-106); LIPASE 106 U/L (23-300); POTASSIUM 3.9 mmol/L (3.4-5.0); SODIUM 135 mmol/L (137-145); TOTAL PROTEIN 7.4 gm/dL (6.4-8.2)
[2020-05-31 00:55] LABS: ALCOHOL(ethanol),MEDICAL < 10 mg/dL
[2020-05-31] MEDS ORDERED: METOZOLV ODT5 MG PO (03:19)
[2020-05-31] MEDS ORDERED: ROXICODONE 55 MG/TAB PO ×2 (03:19→16:25)
[2020-05-31] MEDS ORDERED: ALDACTONE 25MG25 M1 PO (03:20)
--- NOTE | 2020-05-31 04:53 | NUR ---
Patient arrived to medical floor at 0430. Assessment complete. Lungs clear. Heart sounds normal. Bowels active x4. Pulses present throughout. Bilateral lower extremity edema +1. INT right AC without complications. Denies pain at this time. Orientated to medical floor and room. Patient updated regarding plan of care. All questions answered. Denies other needs at this time. Call light in reach.
--- NOTE | 2020-05-31 06:18 | NUR ---
Patient had uneventful shift thus far. Resting in bed. Call light in reach.
--- NOTE | 2020-05-31 06:49 | NUR ---
Report given to ANTHONY Salmeron
--- NOTE | 2020-05-31 07:00 | NUR ---
Report with ANTHONY Madera. Pt resting in bed with eyes closed, resp even and unlabored. Call light in reach.
--- NOTE | 2020-05-31 07:07 | NUR ---
Report given to ANTHONY Ballesteros
--- NOTE | 2020-05-31 08:45 | NUR ---
Pt to laborer orchard for procedure via bed accompanied by ANTHONY Marti.
--- NOTE | 2020-05-31 09:04 | NUR ---
SEE MERGE FOR ALL MEDICATION ADMINISTRATION TIMES, INTRA AND POST SEDATION ASSESS,ENTS
--- NOTE | 2020-05-31 10:10 | NUR ---
Pt back to room following procedure via bed accompanied by ANTHONY Marti. Pt A&O x 4, reports start of back pain and hunger, VSS. Dressing to right groin site CDI, soft to palpation. POC for bedrest x 4 hours reviewed with pt, verbalizes understanding. No further needs reported. Call light in reach.
--- NOTE | 2020-05-31 13:30 | NUR ---
Dime size spot of blood noted on gauze dressing at right groin site, pressure held for 10 minutes and no growth of blood, area soft to palpation. Pt denies pain at site. Pt has been occasionally moving legs and head, needing constant reminders to lay still and not move.
--- NOTE | 2020-05-31 14:00 | NUR ---
Pt assisted to bathroom and back to bed now that bedrest is complete. Drainage spot on groin dressing remains the same. Pt has steady gait, denies c/o or needs. This nurse reviews plan with pt to monitor a couple more hours to be certain there are no problems with bleeding prior to discharging.
--- NOTE | 2020-05-31 14:46 | NUR ---
SANDRA met with the patient to discuss discharge plan. The patient lives in [place] with his , Jose (ph#[phone]). He reports independence with ADLs and has a cane, walker, and wheelchair available if needed. He states that he has home health services from [facility]. The patient's PCP is Dr. Angelica Mcneill and he receives his medications from [facility]. He reports no difficulties obtaining his meds. The patient does not have a DPOA-HC in EMR, he states that he does have one completed and and that his PCP's office may have a copy of it. He states that his is his DPOA-HC. SANDRA contacted Kylee, social organization professor, with Dr. Mcneill. Kylee reports that they do not have a DPOA-HC on file. The patient plans to return home with his and resume services from [facility]. SANDRA contacted and faxed updates to Mattie at [facility]. Mattie reports that they can resume services upon dischage. SANDRA attempted to contact the patient's , Jose. Her phone states that the republican is not available and to try again later. The patient states that the patient's phone is out of minutes and she should be getting minutes tonight or tomorrow. SW to continue to follow.
--- NOTE | 2020-05-31 15:55 | NUR ---
The patient is to discharge back home with his today, 2/, with home health services for correction/PT/OT through [facility]. SANDRA notified and faxed d/c orders to Mattie at [facility]. No additional needs at this time.
--- NOTE | 2020-05-31 16:51 | NUR ---
Discharge instructions reviewed with pt regarding follow-up appointments and care of right groin site post-cath. Pt verbalizes understanding. Pt discharged home, escorted out of facility accompanied by NUTRITION CLUB AMBASSADOR. Pt's friend providing ride home.
== END 2020-05-31 16:52 | disposition home or self-care (01) ==
LOC: COL.ER 00:02 → MEDICAL 02:41
PROVIDERS: Emergency Medicine; ADMIT Student in an Organized Health Care Education/Training Program
DX: I35.0 Nonrheumatic aortic (valve) stenosis (principal); I27.20 Pulmonary hypertension, unspecified; I11.0 Hypertensive heart disease with heart failure; I50.32 Chronic diastolic (congestive) heart failure; J44.9 Chronic obstructive pulmonary disease, unspecified; K74.60 Unspecified cirrhosis of liver; K76.0 Fatty (change of) liver, not elsewhere classified; I48.91 Unspecified atrial fibrillation; Z86.718 Personal history of other venous thrombosis and embolism; Z87.891 Personal history of nicotine dependence; K21.9 Gastro-esophageal reflux disease without esophagitis; D64.9 Anemia, unspecified; I83.90 Asymptomatic varicose veins of unspecified lower extremity; F41.9 Anxiety disorder, unspecified
CPT/HCPCS: 99223-AI; J1644; J2250; J2270; J2405; Q9967

== ENCOUNTER 2020-06-16 14:41 | Emergency (ER) | payer MEDICARE ==
[~2020-06-16] VITALS: Ht 177.8 cm; Wt 93.2 kg
[~2020-06-16 14:41] MED LIST changes: +ALDACTONE 25MG25 M1 PO; +METOZOLV ODT5 MG PO; +ROXICODONE 55 MG/TAB PO
[2020-06-16 15:32] LABS: BASO # 0.1 (0.0-0.2); EOS # 0.2 (0.0-0.7); EOS % 2.8 % (0-4.0); GRAN # 3.2 (1.4-6.5); GRAN % 53.2 % (42.2-75.2); HEMATOCRIT 30.9 % (42.0-52.0); LYMPH # 1.7 (1.2-3.4); LYMPH % 28.2 % (20.0-51.0); MEAN CELL VOLUME 86 fl (80.0-100.0); MEAN CORPUSCULAR HEMOGLOBIN 25 pg (27.0-31.0); MEAN CORPUSCULAR HGB CONC 29 g/dl (33.0-37.0); MEAN PLATELET VOLUME 10.1 fl (7.4-10.4); MONO # 0.9 (0.1-0.6); MONO % 14.6 % (1.7-9.3); PLATELET COUNT 172 K/mm3 (130-400); REDCELL DISTRIBUTION WIDTH-CV 19.4 % (11.5-14.5)
[2020-06-16 15:47] LABS: ALANINE AMINOTRANSFERASE 25 U/L (4-49); ALBUMIN 4.2 gm/dL (3.5-5.0); ALKALINE PHOSPHATASE 79 U/L (50-136); ANION GAP 9 mmol/L (7-16); AST,SGOT 37 U/L (15-37); BILIRUBIN,TOTAL 0.6 mg/dL (0.0-1.0); BLOOD UREA NITROGEN 15 mg/dL (9-20); CALCIUM 9.3 mg/dL (8.4-10.2); CARBON DIOXIDE 29 mmol/L (22-30); CHLORIDE 98 mmol/L (98-107); CREATININE, serum 1.39 (0.66-1.25); GLUCOSE 134 mg/dL (74-106); LIPASE 84 U/L (23-300); POTASSIUM 3.4 mmol/L (3.4-5.0); SODIUM 136 mmol/L (137-145); TOTAL PROTEIN 7.8 gm/dL (6.4-8.2)
[2020-06-16 15:48] LABS: C-REACTIVE PROTEIN < 0.5 mg/dL (0.0-0.9)
[2020-06-16 17:53] VITALS: BP 116/72; PULSE 71; TEMP 97
== END 2020-06-16 17:55 | disposition home or self-care (01) ==
LOC: COL.ER 14:41
PROVIDERS: Family Medicine
DX: R10.13 Epigastric pain (principal); Z87.891 Personal history of nicotine dependence
CPT/HCPCS: J2405; J3010; J7120

== ENCOUNTER 2020-06-23 07:59 | Day surgery (SDC) | payer MEDICARE ==
[~2020-06-23] VITALS: Ht 180.3 cm; Wt 96.4 kg
[2020-06-23] MEDS ORDERED: RT ALBUTER2.5 MG/0.5 IH (08:23)
[2020-06-23 08:25] VITALS: BP 137/75; PULSE 60; TEMP 98.4
[2020-06-23 10:40] VITALS: BP 133/69; PULSE 64; TEMP 98
--- NOTE | 2020-06-23 10:40 | NUR ---
PT TO BAY 8 VIA CART, WALKED TO CHAIR WITH HELP, PT USES CANE WHEN WALKING. NO C/O PAIN OR SOB, MONITOR ON SR, RATE IN 60'S. TAKES SPRITE AND MUFFIN, CALL LIGHT IN REACH
[2020-06-23 10:55] VITALS: BP 126/71; PULSE 60
--- NOTE | 2020-06-23 10:55 | NUR ---
PT STATES DR TALKED WITH HIM IN ROOM, HAS NO C/O. STATES WILL PROBABLY SEE IN HOSPITAL TOMORROW AND GO HOME TODAY, CALLED FOR RIDE.
[2020-06-23 11:10] VITALS: BP 147/77; PULSE 64
--- NOTE | 2020-06-23 11:10 | NUR ---
REVIEWED DISCHARGE INST. WITH PT ON EGD ON DRIVING, MODERATE SEDATION, ACTIVITY AND FOLLOWUP THAT WILL BE ARRANGED WITH VERBAL UNDERSTANDING. IV D'CD, HAD HALF DOLLAR SIZE HEMATOMA TO SITE, PRESSURE APPLIED AGAIN AND REWRAPPED. PT UP TO B/R TO VOID USES CAN, WAITS FOR RIDE
--- NOTE | 2020-06-23 12:10 | NUR ---
PT DISCHARGED VIA W/C TO LOBBY WITH FRIEND
[2020-06-23] MEDS ORDERED: PERCOCET 325 MG1 TA2 PO (17:39)
== END 2020-06-23 12:10 | disposition home or self-care (01) ==
LOC: SDCO 07:59
DX: I85.00 Esophageal varices without bleeding (principal); K74.60 Unspecified cirrhosis of liver; K21.9 Gastro-esophageal reflux disease without esophagitis; R18.8 Other ascites; I35.0 Nonrheumatic aortic (valve) stenosis; I48.91 Unspecified atrial fibrillation; I27.20 Pulmonary hypertension, unspecified; J44.9 Chronic obstructive pulmonary disease, unspecified; G62.9 Polyneuropathy, unspecified; D64.9 Anemia, unspecified; M19.90 Unspecified osteoarthritis, unspecified site; R07.89 Other chest pain; I50.32 Chronic diastolic (congestive) heart failure; F17.210 Nicotine dependence, cigarettes, uncomplicated; Z79.891 Long term (current) use of opiate analgesic; Z79.899 Other long term (current) drug therapy; Z20.822 Contact with and (suspected) exposure to COVID-19; Z79.01 Long term (current) use of anticoagulants; Z87.891 Personal history of nicotine dependence; Z79.82 Long term (current) use of aspirin
CPT/HCPCS: J2250; J2270; J2704; J7030; J7120

== ENCOUNTER 2020-06-23 15:00 | Emergency (ER) | payer MEDICARE ==
[~2020-06-23] VITALS: Ht 180.3 cm; Wt 95.5 kg
[~2020-06-23 15:00] MED LIST changes: +RT ALBUTER2.5 MG/0.5 IH
[2020-06-23 15:33] LABS: INR 1.1 (0.8-3.0); PROTHROMBIN TIME 12.3 SECONDS (9.7-12.8)
[2020-06-23 15:34] LABS: BASO % 0.6 % (0.0-2.0); EOS # 0.1 (0.0-0.7); EOS % 0.9 % (0-4.0); GRAN # 4.5 (1.4-6.5); GRAN % 64.9 % (42.2-75.2); LYMPH # 1.6 (1.2-3.4); MEAN CELL VOLUME 88 fl (80.0-100.0); MEAN CORPUSCULAR HGB CONC 30 g/dl (33.0-37.0); MEAN PLATELET VOLUME 10.6 fl (7.4-10.4); MONO # 0.7 (0.1-0.6); MONO % 10.5 % (1.7-9.3); PLATELET COUNT 174 K/mm3 (130-400); REDCELL DISTRIBUTION WIDTH-CV 23.8 % (11.5-14.5)
[2020-06-23 15:35] LABS: HEMATOCRIT 32.5 % (42.0-52.0); HEMOGLOBIN 9.8 g/dl (13.5-18.0); MEAN CORPUSCULAR HEMOGLOBIN 26 pg (27.0-31.0)
[2020-06-23 15:36] LABS: PARTIAL THROMBOPLASTIN TIME 27.6 SECONDS (26.0-37.0)
[2020-06-23 15:38] LABS: ALANINE AMINOTRANSFERASE 32 U/L (4-49); ALBUMIN 3.9 gm/dL (3.5-5.0); ALKALINE PHOSPHATASE 70 U/L (50-136); ANION GAP 13 mmol/L (7-16); AST,SGOT 58 U/L (15-37); BILIRUBIN,TOTAL 0.5 mg/dL (0.0-1.0); BLOOD UREA NITROGEN 11 mg/dL (9-20); CALCIUM 9.1 mg/dL (8.4-10.2); CARBON DIOXIDE 18 mmol/L (22-30); CHLORIDE 103 mmol/L (98-107); CREATININE, serum 0.72 (0.66-1.25); GLUCOSE 264 mg/dL (74-106); POTASSIUM 4.1 mmol/L (3.4-5.0); SODIUM 134 mmol/L (137-145); TOTAL PROTEIN 7.2 gm/dL (6.4-8.2)
[2020-06-23 15:54] LABS: TROPONIN-I < 0.012 ng/mL (0.000-0.035)
[2020-06-23] MEDS ORDERED: PERCOCET 325 MG1 TA2 PO (17:39)
[2020-06-23 18:06] VITALS: BP 128/69; PULSE 60
== END 2020-06-23 18:06 | disposition home or self-care (01) ==
LOC: COL.ER 15:00
PROVIDERS: Nurse Practitioner Family
DX: I35.0 Nonrheumatic aortic (valve) stenosis (principal); I48.91 Unspecified atrial fibrillation; I50.32 Chronic diastolic (congestive) heart failure; D64.9 Anemia, unspecified; Z79.01 Long term (current) use of anticoagulants; Z87.891 Personal history of nicotine dependence; Z79.82 Long term (current) use of aspirin
CPT/HCPCS: J2270; J7030

== ENCOUNTER → 2020-06-26 | Outpatient (CLI) | payer MEDICARE ==
[~2020-06-26] MED LIST changes: +ASPIRIN E.C. 8181 MG PO; +ATARAX 25MG25 MG/TAB PO; +BROVANA15 MCG/2 M IH; +EPCLUSA 400 MG1 EACH PO; +PERCOCET 325 MG1 TA2 PO; +PLAVIX 75MG TAB75 MG PO; +REBETOL200 MG PO; +ZOLOFT 50MG50 MG PO
== END ==
LOC: COL.LAB 22:32
DX: R73.09 Other abnormal glucose (principal)

== ENCOUNTER 2020-09-04 16:34 | Outpatient (RCR) | payer MEDICARE ==
[~2020-09-04 16:34] MED LIST changes: -ASPIRIN E.C. 8181 MG PO; -ATARAX 25MG25 MG/TAB PO; -BROVANA15 MCG/2 M IH; -EPCLUSA 400 MG1 EACH PO; -PLAVIX 75MG TAB75 MG PO; -REBETOL200 MG PO; -ZOLOFT 50MG50 MG PO
== END 2020-09-11 06:35 | disposition home or self-care (01) ==
LOC: COL.CR 16:34
DX: Z48.812 Encounter for surgical aftercare following surgery on the circulatory system (principal); Z95.2 Presence of prosthetic heart valve

== ENCOUNTER 2020-11-15 14:00 | Outpatient (CLI) | payer MEDICARE, MEDICAID ==
[~2020-11-15] VITALS: Ht 177.8 cm; Wt 95.0 kg
[2020-11-15] MEDS ORDERED: TYLENOL 500MG500 MG PO (15:01)
[2020-11-15] MEDS ORDERED: BROVANA15 MCG/2 M IH (15:04)
[2020-11-15] MEDS ORDERED: ASPIRIN E.C. 8181 MG PO (15:04)
[2020-11-15] MEDS ORDERED: PULMICORT0.5 MG/2 M IH (15:05)
[2020-11-15] MEDS ORDERED: ATARAX 25MG25 MG/TAB PO (15:05)
[2020-11-15] MEDS ORDERED: ZOLOFT 50MG50 MG PO (15:06)
[2020-11-15] MEDS ORDERED: ROXICODONE 55 MG/TAB PO (15:06)
[2020-11-15] MEDS ORDERED: PLAVIX 75MG TAB75 MG PO (15:07)
[2020-11-15 15:10] VITALS: BP 108/68; PULSE 90; TEMP 99
[2020-11-15] MEDS ORDERED: REBETOL200 MG PO (16:06)
[2020-11-15] MEDS ORDERED: EPCLUSA 400 MG1 EACH PO (16:06)
== END 2020-11-15 15:18 | disposition home or self-care (01) ==
LOC: EUO 14:00
DX: K70.30 Alcoholic cirrhosis of liver without ascites (principal)
CPT/HCPCS: J1756

== ENCOUNTER 2020-12-08 10:00 | Outpatient (RCR) | payer MEDICARE, MEDICAID ==
[~2020-12-08 10:00] MED LIST changes: +ASPIRIN E.C. 8181 MG PO; +ATARAX 25MG25 MG/TAB PO; +BROVANA15 MCG/2 M IH; +EPCLUSA 400 MG1 EACH PO; +PLAVIX 75MG TAB75 MG PO; +REBETOL200 MG PO; +ZOLOFT 50MG50 MG PO
== END 2020-12-12 | disposition home or self-care (01) ==
LOC: PT.GENESIS
DX: M54.5 Low back pain (principal); M54.2 Cervicalgia; M25.552 Pain in left hip

== ENCOUNTER 2020-12-08 15:00 | Outpatient (RCR) | payer MEDICARE, MEDICAID ==
[2020-12-01 15:00] VITALS: PULSE 68
[2020-12-04 15:22] VITALS: BP 137/69; PULSE 54; TEMP 98.6
[2020-12-06 15:46] VITALS: BP 118/66; PULSE 67; TEMP 98.1
[~2020-12-08] VITALS: Ht 177.8 cm; Wt 94.0 kg
[2020-12-08 15:29] VITALS: BP 102/66; PULSE 58; TEMP 98.2
== END 2020-12-08 15:57 | disposition home or self-care (01) ==
LOC: EUO 15:00
DX: E61.1 Iron deficiency (principal); Z79.899 Other long term (current) drug therapy
CPT/HCPCS: J1756

== ENCOUNTER 2020-12-15 13:18 | Day surgery (SDC) | payer MEDICARE, MEDICAID ==
[~2020-12-15] VITALS: Ht 177.8 cm; Wt 95.3 kg
[2020-12-15 13:48] VITALS: BP 119/63; PULSE 58; TEMP 97.1
[2020-12-15 15:20] VITALS: BP 113/75; PULSE 55
--- NOTE | 2020-12-15 15:20 | NUR ---
PATIENT TRANSPORTED PER CART FROM GI SUITE TO BAY 5 ACCOMPANIED BY ENDO RN. PATIENT AMBULATED FROM CART TO CHAIR WITH SLOW STEADY GAIT WITH 1 ASSIST. MONITORS APPLIED. VSS ON ROOM AIR. PATIENT TALKS WITH STAFF. VERBAL REPORT RECIEVED. 6255 PATIENT GIVEN MUFFIN AND DRINK. DOCTOR SPOKE WITH PATIENT.
[2020-12-15 15:30] VITALS: BP 124/61; PULSE 60; TEMP 97.9
[2020-12-15 15:45] VITALS: BP 110/67; PULSE 57
--- NOTE | 2020-12-15 15:55 | NUR ---
VSS ON ROOM AIR. PATIENT TALKS WITH STAFF. DISCHARGE INSTRUCTIONS GIVEN VERBAL AND DISCHARGE PACKET PROVIDED TO PATIENT. QUESTIONS ANSWERED AND PATIENT VOICED UNDERSTANDING. PATIENT CHANGES INTO STREET CLOTHES. 1600 PATIENT DISCHARGE PER WHEEL CHAIR ACCOMPANIED BY ENDO STAFF TO PRIVATE VECHILE DRIVEN BY FAMILY.
[2020-12-15 16:13] VITALS: BP 113/75; PULSE 55
== END 2020-12-15 16:00 | disposition home or self-care (01) ==
LOC: SDCO 13:18
DX: K70.30 Alcoholic cirrhosis of liver without ascites (principal); I85.10 Secondary esophageal varices without bleeding; K29.30 Chronic superficial gastritis without bleeding; K21.9 Gastro-esophageal reflux disease without esophagitis; G47.33 Obstructive sleep apnea (adult) (pediatric); G62.9 Polyneuropathy, unspecified; D64.9 Anemia, unspecified; I50.33 Acute on chronic diastolic (congestive) heart failure; I48.91 Unspecified atrial fibrillation; J43.9 Emphysema, unspecified; M19.90 Unspecified osteoarthritis, unspecified site; E78.5 Hyperlipidemia, unspecified; D50.9 Iron deficiency anemia, unspecified; F41.9 Anxiety disorder, unspecified; Z79.891 Long term (current) use of opiate analgesic; Z79.899 Other long term (current) drug therapy; Z79.02 Long term (current) use of antithrombotics/antiplatelets; Z87.891 Personal history of nicotine dependence; Z99.89 Dependence on other enabling machines and devices
CPT/HCPCS: J2704; J7030

== ENCOUNTER 2020-12-20 10:30 | Outpatient (RCR) | payer MEDICARE, MEDICAID | END 2021-01-04 08:45 | disposition home or self-care (01) | LOC: PT.GENESIS 10:30 | DX: M54.5 Low back pain (principal); M25.552 Pain in left hip; M54.2 Cervicalgia ==

== ENCOUNTER 2021-06-13 07:14 | Outpatient (CLI) | payer MEDICARE, MEDICAID ==
[~2021-06-13] VITALS: Ht 177.8 cm; Wt 101.0 kg
[2021-06-13] MEDS ORDERED: PROAIR HFA0.09 MG/AC IH (07:53)
[2021-06-13 07:54] LABS: BASO % 0.7 % (0.0-2.0); EOS # 0.1 K/mm3 (0.0-0.7); GRAN # 3.9 K/mm3 (1.4-6.5); GRAN % 65.8 % (42.2-75.2); HEMOGLOBIN 10.7 g/dl (13.5-18.0); LYMPH # 1.2 K/mm3 (1.2-3.4); LYMPH % 19.4 % (20.0-51.0); MEAN CELL VOLUME 97 fl (80.0-100.0); MEAN CORPUSCULAR HEMOGLOBIN 32 pg (27-31); MEAN CORPUSCULAR HGB CONC 33 g/dl (33.0-37.0); MEAN PLATELET VOLUME 10.3 fl (7.4-10.4); MONO # 0.7 K/mm3 (0.1-0.6); MONO % 11.8 % (1.7-9.3); PLATELET COUNT 151 K/mm3 (130-400); RED BLOOD COUNT 3.33 M/mm3 (4.20-5.60)
[2021-06-13 07:55] LABS: HEMATOCRIT 32.4 % (42.0-52.0); INR 1.4 (0.8-3.0); PROTHROMBIN TIME 15.1 SECONDS (9.7-12.8)
[2021-06-13] MEDS ORDERED: COPEGUS200 MG PO (08:00)
[2021-06-13] MEDS ORDERED: XIFAXAN550 MG PO (08:09)
[2021-06-13 08:11] LABS: CALCIUM 8.4 mg/dL (8.4-10.2); CREATININE, serum 0.82 mg/dL (0.72-1.25); POTASSIUM 4.2 mmol/L (3.5-4.5)
[2021-06-13] MEDS ORDERED: ELIQUIS 5MG PO (08:13)
[2021-06-13] MEDS ORDERED: ASPIRIN E.C. 8181 MG PO (08:13)
[2021-06-13] MEDS ORDERED: DIGESTIVE ADVA1 EAC3 PO (08:14)
[2021-06-13] MEDS ORDERED: D3-5050000 IU PO (08:14)
[2021-06-13] MEDS ORDERED: IPRATROPIUM BROM3 M1 IH (08:15)
[2021-06-13] MEDS ORDERED: FLONASE NASAL S16 GM NS (08:15)
[2021-06-13] MEDS ORDERED: MIRALAX PA17 GM/Dose PO (08:15)
[2021-06-13] MEDS ORDERED: REQUIP 0.5MG0.5 MG PO (08:19)
[2021-06-13 08:22] VITALS: BP 127/73; PULSE 56; TEMP 98.5
[2021-06-13 09:25] VITALS: BP 123/69; PULSE 51
--- NOTE | 2021-06-13 09:25 | NUR ---
RECIEVED REPORT FROM WHITNEY CRUZ, PT IS AWAKE AND ALERT, SITS UP IN BED, HAS NO C/O, TALKATIVE. TAKES WATER
[2021-06-13 09:40] VITALS: BP 129/72; PULSE 51
[2021-06-13 09:55] VITALS: BP 128/76; PULSE 51
--- NOTE | 2021-06-13 10:00 | NUR ---
REVIEWED DISCHARGE INST. WITH PT ON MODERATE SEDATION, FOLLOWUP AND PRECAUTIONS WITH VERBAL UNDERSTANDING. IV D'CD INTACT. PT UP IN ROOM DRESSED, DISCHARGED VIA W/C TO CAR WITH FRIEND
== END 2021-06-13 10:00 | disposition home or self-care (01) ==
LOC: COL.RAD 07:14
PROVIDERS: Internal Medicine Cardiovascular Disease
DX: Z95.818 Presence of other cardiac implants and grafts (principal)
CPT/HCPCS: J0330; J2704

== ENCOUNTER 2022-01-17 09:00 | Outpatient (RCR) | payer MEDICARE, MEDICAID ==
[2022-01-03 08:38] VITALS: BP 122/67; PULSE 47; TEMP 98.1
[2022-01-08 15:52] VITALS: BP 134/78; PULSE 61; TEMP 98.8
[2022-01-10 13:24] VITALS: BP 127/67; PULSE 59; TEMP 98.6
[2022-01-15 13:08] VITALS: BP 134/65; PULSE 51; TEMP 98.2
[~2022-01-17] VITALS: Ht 177.8 cm; Wt 98.2 kg
[~2022-01-17 09:00] MED LIST changes: +ASPIRIN 81M81 MG/TA2 PO; +CARAFATE 1GM1 G PO; +COPEGUS200 MG PO; +D3-5050000 IU PO; +DIGESTIVE ADVA1 EAC3 PO; +ELIQUIS 5MG PO; +FLONASE NASAL S16 GM NS; +IPRATROPIUM BROM3 M1 IH; +MIRALAX PA17 GM/Dose PO; +NATURE'S BLEND100 M2 PO; +PROAIR HFA0.09 MG/AC IH; +REQUIP 0.5MG0.5 MG PO; +ULTRAM 50MG TAB50 MG PO; +XIFAXAN550 MG PO
[2022-01-17 09:30] VITALS: BP 144/97; PULSE 57; TEMP 98.5
[2022-01-17 09:53] VITALS: BP 183/96; PULSE 55
--- NOTE | 2022-01-17 10:02 | NUR ---
At aproximately 0948 pt was walking in hallway by ICU, stumbled, and fell.Fall was witnessed by this nurse.Pt reached both arms out to catch himself,stumbled a couple steps then fell to ground.Distance was too far for this nurse to assist during fall.Pt normally walks independently without assist.Pt had stopped and visited at desk with this nurse prior to departure.Pt reports his shoes have tread that autism motor specialist on marc.Per pt he reports he felt his shoe printing gray cloth tender and then stumbled.Patient"s vitals obtained prior to sitting up as follows 183/96, pulse of 55, 100% on room air.Patient assisted to sitting position.Fall took place outside of IMCU room 18 and Director's office.Patient reports he bumped right elbow,right knee and right cheek.Allen Ma took pt to room 13 to monitor.Pt initially refused to go to ER but per report from Francesca, patient decided to go to ED shortly after due to c/o back pain.
--- NOTE | 2022-01-17 10:10 | NUR ---
Pt fell in hallway on his way out. Pt was brought back to room 13 for an observation period, and he reports is feeling more uncomfortable, reporting increasing back pain, neck pain and headache. Report called to ER rfid engineer and pt taken to rm 5 in ER. Pt remains alert and oriented, pwd, unlabored respirations.. Pt was able to change into gown in rm 5 with no problem, moving all extremities x 4 with no obvious difficulty, and able to stand and move over to stretcher with no problem.
== END 2022-01-17 11:21 ==
LOC: EUO 09:00
DX: E61.1 Iron deficiency (principal)
CPT/HCPCS: J1756

== ENCOUNTER 2022-01-17 10:06 | Emergency (ER) | payer MEDICARE, MEDICAID ==
[~2022-01-17] VITALS: Ht 177.8 cm; Wt 97.7 kg
[2022-01-17 10:16] VITALS: BP 171/82; TEMP 97.6
[2022-01-17 13:48] VITALS: PULSE 47
== END 2022-01-17 13:49 | disposition home or self-care (01) ==
LOC: COL.ER 10:06
DX: S39.012A Strain of muscle, fascia and tendon of lower back, initial encounter (principal); S70.01XA Contusion of right hip, initial encounter; S09.90XA Unspecified injury of head, initial encounter; W01.198A Fall on same level from slipping, tripping and stumbling with subsequent striking against other object, initial encounter; Y93.01 Activity, walking, marching and hiking
CPT/HCPCS: J2270